=== PATIENT | female | born 1960 | race Caucasian/White ===

== ENCOUNTER 2017-08-11 10:41 | Emergency (ER) | payer MEDICARE, MEDICAID, SELFPAY ==
[2017-08-11 10:42] VITALS: RESP 18; O2SAT 99; BMI 35.6
--- NOTE | 2017-08-11 10:48 | CT_ITS ---
CT head/brain wo con HISTORY: Headache/pain following injury, contusion, abrasion. Prior cranial surgery ITS.REASON: FALL WITH INJURY ORDERING PHYSICIAN: Jurgen Nair MD PATIENT AGE: 57 years COMPARISON: 03/08/2017 TECHNIQUE: Axial images obtained without contrast. Brain and bone windows reviewed. FINDINGS: Has been a prior right temporal, parietal, and frontal craniotomy with extensive encephalomalacia change in the right frontal lobe, posterior temporal region, and right lower lobe similar to the previous exam No intracranial hemorrhage, midline shift or mass effect is evident. No acute calvarial fracture. IMPRESSION: Extensive encephalomalacia change on the right likely from a prior MCA infarction with craniotomy changes. No change with no acute finding
--- NOTE | 2017-08-11 10:51 | CT_ITS ---
CT cervical spine wo con INDICATION: Neck pain following injury/fall ITS.REASON: FALL ORDERING PHYSICIAN: Jurgen Nair MD PATIENT AGE: 57 years COMPARISON: None TECHNIQUE: Axial images are obtained without contrast. Sagittal and coronal reformatted images are reviewed as well. FINDINGS: Normal alignment. Patient head is somewhat tilted to the right. No fracture or dislocation is evident. No prevertebral soft tissue swelling There is a nodule in the left upper lobe centrally measuring up to 3 x 1.5 cm. Neoplasm is considered versus fibrotic change. Consider outpatient chest CT for further evaluation IMPRESSION: 1. Negative cervical spine, no acute fracture. 2. Indeterminate incompletely imaged left upper lobe 3 x 1.5 cm nodule
--- NOTE | 2017-08-11 10:51 | HMH.EDGENADL ---
ED Disposition Clinical Impression: Scalp contusion Qualifiers: Encounter type: initial encounter Qualified Code(s): S00.03XA - Contusion of scalp, initial encounter Cervical strain Qualifiers: Encounter type: initial encounter Qualified Code(s): S16.1XXA - Strain of muscle, fascia and tendon at neck level, initial encounter Fracture of second metacarpal bone of left hand Qualifiers: Encounter type: initial encounter Fracture type: closed Metacarpal location: shaft Fracture alignment: nondisplaced Qualified Code(s): S62.351A - Nondisplaced fracture of shaft of second metacarpal bone, left hand, initial encounter for closed fracture Fall Qualifiers: Encounter type: initial encounter Qualified Code(s): W19.XXXA - Unspecified fall, initial encounter Disposition: Home, Self-Care Condition on Discharge: Good Additional Instructions: Wear splint until seen by Dr. Mena. Additional instructions for HEAD INJURY: See your physician as soon as possible for further evaluation. Return immediately if severe headache, vomiting, problems with vision or speech, numbness or weakness of the extremities, or severe neck pain. Referrals: Taran Mena MD [Staff Physician] - 3 days - Critical Care Critical Care Time: No Attestation: On , the high probability of a clinically significant, sudden or life threatening deterioration of the following system(s) required my full and direct attention, intervention and personal management. The time I documented below is in addition to time spent performing reported procedures but includes the following listed in this critical care notation. Medical Decision Making Vital Signs: 08/11/17 10:42 Temperature Source Oral Respiratory Rate 18 02 Sat by Pulse Oximetry 99 Oxygen Delivery Method Room Air - Radiology Data #1 Image(s): Hand Image Reviewed: Yes I have reviewed radiologist's interpretation Nondisplaced fracture distal second metacarpal. I have reviewed the film and the patient's soft tissue of her thumb overlies this area because of a chronic contracture of her hand. This lucency in this metacarpal looks to me to extend past the margins of the metacarpal on both sides and may be related to overlying soft tissue rather than fracture. on examination, the patient does not have any edema, ecchymosis or tenderness in this area. However, will splint it and send her to orthopedics for follow-up. - CT Data CT Scan: Head, C-Spine Time Received: 12:[address] Reviewed: Yes: I have viewed the radiologist's interpretation Findings Narrative: Head: No acute process. Prior craniotomy. Cervical spine: No acute process. Questionable upper lung nodule. - Josue Inquiry Pt receiving controlled substance: No General Adult HPI - General Chief complaint: Fall Stated complaint: FALL Mode of Arrival: EMS Limitations: No Limitations Description of Symptoms (Recalled from ER Triage Doc. by RN): FELL AND HIT HEAD - History of Present Illness HPI narrative: The patient is brought in by ambulance from [place] complaining of a fall. She says she fell because of her shoes. It sounds like a mechanical fall. She says she hit the right side of her head, pretty hard. She says she does not have a skull on that side due to previous brain aneurysm. She does not complain of neck pain but when I ask her if she hurt her neck she says yes . She says she also hurt her left index finger she says it's broken - Related Data Home Medications Medication Instructions Recorded Confirmed Acetaminophen [Tylenol] 325 mg PO DAILY 08/11/17 08/11/17 Aspirin [Aspirin 81mg chewable 81 mg PO DAILY 08/11/17 08/11/17 tab] Atorvastatin Calcium [Lipitor 10mg 0 mg PO DAILY 08/11/17 08/11/17 Tablet] Buspirone HCl [Buspar 10mg tablet] 0 mg PO DAILY 08/11/17 08/11/17 Losartan Potassium 100 mg PO DAILYDM 08/11/17 08/11/17 Metoprolol Succinate 25 mg PO DAILY 08/11/17 08/11/17 PARoxetine H
--- NOTE | 2017-08-11 11:03 | XR_ITS ---
XR hand LT min 3V HISTORY: Post traumatic pain ITS.REASON: fall ORDERING PHYSICIAN: Jurgen Nair MD PATIENT AGE: 57 years COMPARISON: None FINDINGS: Patient was unable to extend the fourth fifth fingers. Study is somewhat limited technically. There is a nondisplaced fracture at the distal shaft of the second metacarpal. Bone plates are present at the distal radius and normal. There is generalized osteopenia. IMPRESSION: Nondisplaced fracture distal aspect of second metacarpal. Limited exam secondary to patient positioning
[2017-08-11 14:13] VITALS: BP 114/57; PULSE 63; RESP 18; TEMP 36.8
== END 2017-08-11 14:15 | disposition home or self-care (01) ==
PROVIDERS: Emergency Provider Emergency Medicine; Family Provider Emergency Medicine
DX: S00.03XA Contusion of scalp, initial encounter (principal); S16.1XXA Strain of muscle, fascia and tendon at neck level, initial encounter; S62.351A Nondisplaced fracture of shaft of second metacarpal bone, left hand, initial encounter for closed fracture; W01.0XXA Fall on same level from slipping, tripping and stumbling without subsequent striking against object, initial encounter; Y92.199 Unspecified place in other specified residential institution as the place of occurrence of the external cause; Z79.899 Other long term (current) drug therapy; Z79.82 Long term (current) use of aspirin
CPT/HCPCS: 29130; 70450; 72125; 73130; 99281; 99291

== ENCOUNTER → 2017-08-22 10:16 | Outpatient (CLI) | payer MEDICARE, SELFPAY ==
--- NOTE | 2017-08-22 10:19 | XR_ITS ---
XR hand LT min 3V HISTORY: Follow-up fracture ITS.REASON: LT second metacaral fx ORDERING PHYSICIAN: Taran Mena MD PATIENT AGE: 57 years COMPARISON: 2 03 20 FINDINGS: The study is obtained through a cast There is a nondisplaced fracture of the distal shaft of the second metacarpal. This poorly demonstrated due to the overlying cast. There is an old fracture of the distal radius and ulna with a bone plate present at the distal radius and ulna. IMPRESSION: Nondisplaced fracture distal second metacarpal poorly demonstrated due to overlying cast
== END ==
PROVIDERS: PCP Emergency Medicine; Visit Provider Orthopaedic Surgery
DX: S62.301A Unspecified fracture of second metacarpal bone, left hand, initial encounter for closed fracture (principal)
CPT/HCPCS: 73130

== ENCOUNTER 2017-09-12 12:33 | Emergency (ER) | payer MEDICARE, MEDICAID, SELFPAY ==
[2017-09-12 12:33] VITALS: BP 173/110; PULSE 76; RESP 20; TEMP 36.6; O2SAT 97; BMI 33.6
--- NOTE | 2017-09-12 12:47 | HMH.EDGENADL ---
ED Disposition Clinical Impression: Episode of shaking Disposition: Home, Self-Care Condition on Discharge: Good Instructions: DI for Seizure (Not Epilepsy/Seizure Disorder) Additional Instructions: Possible seizure, call Dr. Wagner to arrange further evaluation and care. Additional instructions for SEIZURE OR LOSS OF CONSCIOUSNESS/POSSIBLE SEIZURE: NO DRIVING, BIKE RIDING, SWIMMING, TUB BATHING, LADDERS UNTIL CLEARED BY DOCTOR. RETURN IF SEIZURE RECURS. NO ALCOHOL OR STREET DRUGS. See your physician as soon as possible for follow-up. Return to the emergency department if seizure recurs. Referrals: Tommie Wagner MD [Primary Care Provider] - (call today to arrange further evaluation and care) - Critical Care Critical Care Time: No Attestation: On , the high probability of a clinically significant, sudden or life threatening deterioration of the following system(s) required my full and direct attention, intervention and personal management. The time I documented below is in addition to time spent performing reported procedures but includes the following listed in this critical care notation. Medical Decision Making - Medical Records Medical records reviewed: Yes: I reviewed the patient's medical records. - Josue Inquiry Pt receiving controlled substance: No Vital Signs: 09/12/17 12:33 Temperature 97.9 F Temperature Source Axillary Pulse Rate [Right Brachial] 76 Respiratory Rate 20 Blood Pressure [Right Arm] 173/110 Blood Pressure Mean [Right Arm] 131 Blood Pressure Source [Right Arm] Automatic Cuff Blood Pressure Position [Right Arm] Sitting 02 Sat by Pulse Oximetry 97 Oxygen Delivery Method Room Air - Lab Data Lab Results 09/12/17 13:10: WBC 6.2, RBC 3.83 L, Hgb 9.6 L, Hct 32.3 L, MCV 84.3, MCH 25.1 L, MCHC 29.8 L, RDW 16.7, Plt Count 370, MPV 7.6, Neut % (Auto) 57.1, Lymph % (Auto) 32.3, Jackson % (Auto) 6.8, Eos % (Auto) 2.9, Baso % (Auto) 0.9, Neut # (Auto) 3.5, Lymph # (Auto) 2.0, Jackson # (Auto) 0.4, Eos # (Auto) 0.2, Baso # (Auto) 0.1 09/12/17 13:10: Sodium 139, Potassium 4.2, Chloride 104, Carbon Dioxide 28, Anion Gap 11.2, BUN 12, Creatinine 0.82, Estimated Creat Clear 82, Estimated GFR 72, Est GFR ( Amer) 87, Glucose 127 H, Calcium 8.6, Total Bilirubin 0.2, AST 74 H, ALT 57, Alkaline Phosphatase 130 H, Total Protein 9.3 H, Albumin 3.7, Globulin 5.6 H, Albumin/Globulin Ratio 0.7 L Result diagrams: 09/12/17 13:10 09/12/17 13:10 - CT Data CT Scan: Head Time Received: 14:[address] Reviewed: Yes: I have viewed the radiologist's interpretation Findings Narrative: Overall, no change from prior with extensive encephalomalacia and prior right-sided craniotomy. Medical Decision Narrative: The patient is ambulating around the emergency room, sitting in a chair, eating a meal. She says she feels normal. No change in her vision, speech, no new numbness or weakness. It is possible that she had a focal seizure, given her prior craniotomy. Advise further evaluation and care by Dr. Wagner. General Adult HPI - General Chief complaint: Dizziness Stated complaint: dizzy Mode of Arrival: Ambulatory Limitations: No Limitations Description of Symptoms (Recalled from ER Triage Doc. by RN): Pt reports felt dizzy suddenly and asked for [place] Staff to help her sit down. - History of Present Illness HPI narrative: The patient is brought in by ambulance from [facility]. The patient states that she got dizzy and staff at the facility helped lay her down. She did not fall. She does tell me that she was shaky. Our nursing staff contacted their staff and they report that the patient had an episode lasting 1 minute of shaking only on her left side. They suspected a seizure. Her speech did not seem right. She does not have a previously diagnosed seizure disorder. She says her left arm/hand is crippled from previous condition. Has a history of a brain aneurysm with crani
--- NOTE | 2017-09-12 12:51 | CT_ITS ---
CT head/brain wo con HISTORY: Seizure ITS.REASON: possible seizure ORDERING PHYSICIAN: Jurgen Nair MD PATIENT AGE: 57 years COMPARISON: 08 11 17 TECHNIQUE: Axial images obtained without contrast. Brain and bone windows reviewed. FINDINGS: There is been a prior right temporal, parietal, and frontal craniotomy with extensive encephalomalacia change in the right frontal, posterior temporal, and parietal lobe similar to the previous exam with extensive craniotomy defect on the right. No midline shift, mass effect, intracranial hemorrhage, or hydrocephalus is evident IMPRESSION: Overall no change in extensive right-sided encephalomalacia change with prior right-sided craniotomy as described above
[2017-09-12 13:21] LABS: Basophils # 0.1 K/mm3 (0-0.2); Basophils % 0.9 % (0.1-2.0); Eosinophils # 0.2 K/mm3 (0.0-0.4); Eosinophils % 2.9 % (0.1-12.0); Hematocrit 32.3 % (37.0-47.0); Hemoglobin 9.6 g/dL (12.2-16.2); Lymphocytes % 32.3 K/mm3 (10-50); Mean Corpuscular HGB Conc 29.8 g/dL (31.8-35.4); Mean Corpuscular Hemoglobin 25.1 pg (27.0-31.2); Mean Corpuscular Volume 84.3 fl (81-99); Mean Platelet Volume 7.6 fl (7.4-10.4); Monocytes # 0.4 K/mm3 (0.1-1.0); Monocytes % 6.8 % (1.7-9.3); Neutrophils # 3.5 K/mm3 (1.8-7.8); Neutrophils % 57.1 % (37.0-80.0); Platelet Count 370 K/mm3 (142-424); Red Blood Count 3.83 M/mm3 (4.20-5.40); Red Cell Distribution Width 16.7 % (11.5-17.5); White Blood Count 6.2 K/mm3 (4.8-10.8)
[2017-09-12 13:31] LABS: Alanine Aminotransferase 57 U/L (12-78); Albumin Level 3.7 gm/dL (3.4-5.0); Albumin/Globulin Ratio 0.7 (1.1-1.8); Alkaline Phosphatase 130 U/L (46-116); Anion Gap 11.2 mEq/L (5-15); Bilirubin,Total 0.2 mg/dL (0.2-1.0); Blood Urea Nitrogen 12 mg/dL (7-18); Calcium 8.6 mg/dL (8.5-10.1); Carbon Dioxide 28 mmol/L (21.0-32.0); Chloride 104 mmol/L (98-107); Creatinine Clearance Estimated 82 mL/min (0-300); Creatinine,Serum 0.82 mg/dL (0.55-1.02); Estimated Glomerular Filt Rate 72 ml/min (>60); GFR (African American) 87 ML/MIN (>60); Globulin 5.6 gm/dl (1.3-3.2); Sodium 139 mmol/L (136-145); Total Protein,Serum 9.3 gm/dL (6.4-8.2)
[2017-09-12 13:42] LABS: Aspartate Amino Transferase 74 U/L (15-37); Potassium 4.2 mmoL/L (3.5-5.1)
[2017-09-12 13:51] LABS: Glucose 127 mg/dL (74-106)
[2017-09-12 14:52] VITALS: BP 164/92; PULSE 72; RESP 20; TEMP 36.7; O2SAT 97
== END 2017-09-12 14:53 | disposition home or self-care (01) ==
PROVIDERS: Emergency Provider Emergency Medicine; Family Provider Emergency Medicine; PCP Emergency Medicine
DX: R42 Dizziness and giddiness (principal); R25.1 Tremor, unspecified; F41.9 Anxiety disorder, unspecified; I10 Essential (primary) hypertension; F17.210 Nicotine dependence, cigarettes, uncomplicated
CPT/HCPCS: 70450; 80053; 85025; 99283

== ENCOUNTER → 2017-09-15 07:58 | Outpatient (CLI) | payer MEDICARE, MEDICAID, SELFPAY ==
--- NOTE | 2017-09-15 07:58 | CT_ITS ---
CT chest wo con COMPARISON: AP upright chest 03/07/2017 HISTORY: Follow-up lung nodule seen on recent CT scan cervical spine TECHNIQUE: Multiaxial scans obtained from the thoracic inlet the hemidiaphragms and were performed without IV contrast. Sagittal coronal reformats were evaluated as well. FINDINGS: There is an oval soft tissue mass with smooth borders anterior segment left upper lobe measuring possibly 2.2 cm on the axial image with what appears be fibrotic stranding extending to the pleura anteriorly. It is basically unchanged in size and overall appearance from previous AP chest film in March 2017. The lung ford are otherwise clear bilaterally. Cardiac size is normal. The superior mediastinum is unremarkable. There is mild aortic tortuosity but no cardiomegaly. Is no pleural fluid. IMPRESSION: Benign-appearing noncalcified oval mass anterior segment left upper lobe and a noncalcified granuloma is a possibility, also hamartoma is a consideration. Focal post inflammatory or post traumatic scarring is a consideration as well. It does appear to be basically stable in appearance from the previous chest film in 6 months previously. In view of the size of the mass suggest a follow-up CT scan or possibly 6 months to evaluate for interval stability
--- NOTE | 2017-09-15 08:15 | XR_ITS ---
XR hand LT min 3V COMPARISON: Left hand 08/11/2017 HISTORY: Follow-up fracture TECHNIQUE: AP lateral and oblique views FINDINGS: Again is generalized osteopenia with mild flexion deformities or possibly mild chronic partial subluxations of the MP joints of the third fourth and fifth fingers. The oblique fracture of the distal shaft of the second metacarpal is almost completely healed this time. IMPRESSION: Healing nondisplaced fracture distal shaft second metacarpal
== END ==
PROVIDERS: Family Provider Emergency Medicine; PCP Emergency Medicine; Visit Provider Emergency Medicine
DX: R91.1 Solitary pulmonary nodule (principal); S62.301A Unspecified fracture of second metacarpal bone, left hand, initial encounter for closed fracture
CPT/HCPCS: 71250; 73130

== ENCOUNTER → 2017-11-07 13:53 | Outpatient (CLI) | payer MEDICARE, MEDICAID, SELFPAY ==
--- NOTE | 2017-11-07 14:04 | XR_ITS ---
XR shoulder LT min 2V HISTORY: Follow-up fracture ITS.REASON: LT humeral neck fx ORDERING PHYSICIAN: Taran Mena MD PATIENT AGE: 57 years COMPARISON: 10/26/2017 FINDINGS: Comminuted impacted radial neck fracture once again noted. There is some callus formation developing along the medial aspect of the fracture. There remains mild impaction with foreshortening. There is mild anterior displacement. IMPRESSION: Healing impacted left humeral neck fracture
== END ==
PROVIDERS: PCP Emergency Medicine; Visit Provider Orthopaedic Surgery
DX: S42.309A Unspecified fracture of shaft of humerus, unspecified arm, initial encounter for closed fracture (principal)
CPT/HCPCS: 73030

== ENCOUNTER → 2017-11-21 09:10 | Outpatient (CLI) | payer MEDICARE, MEDICAID, SELFPAY ==
--- NOTE | 2017-11-21 09:14 | XR_ITS ---
XR shoulder LT min 2V HISTORY: Follow-up fracture ITS.REASON: LT humeral neck fx ORDERING PHYSICIAN: Taran Mena MD PATIENT AGE: 57 years Comparison: 518 FINDINGS: 2 views of left shoulder show a comminuted impacted humeral neck fracture with longitudinal components into the greater tuberosity region. There may be some early callus formation along the medial aspect of the humeral neck. IMPRESSION: Comminuted impacted left humeral neck fracture with suggestion of some early callus formation. No significant displacement
== END ==
PROVIDERS: PCP Emergency Medicine; Visit Provider Orthopaedic Surgery
DX: S42.309A Unspecified fracture of shaft of humerus, unspecified arm, initial encounter for closed fracture (principal)
CPT/HCPCS: 73030

== ENCOUNTER → 2018-11-08 12:40 | Outpatient (CLI) | payer MEDICARE, MEDICAID, SELFPAY ==
--- NOTE | 2018-11-08 12:45 | XR_ITS ---
XR shoulder RT min 2V HISTORY: Follow-up fracture ITS.REASON: right shoulder fx; regular views ORDERING PHYSICIAN: Jules Nye MD PATIENT AGE: 58 years Comparison: 10/10/2018 FINDINGS: Healing comminuted fracture is present involving the neck and head of the right humerus. There is impaction of the fracture fragments. Hypertrophic changes involve the distal clavicle superiorly. There are old right-sided rib fractures. IMPRESSION: No change comminuted healing impacted fracture of the proximal humerus
== END ==
PROVIDERS: Visit Provider Orthopaedic Surgery
DX: S42.291A Other displaced fracture of upper end of right humerus, initial encounter for closed fracture (principal)
CPT/HCPCS: 73030

== ENCOUNTER → 2019-03-29 13:40 | Outpatient (CLI) | payer MEDICARE, MEDICAID, SELFPAY ==
--- NOTE | 2019-03-29 14:04 | XR_ITS ---
PROCEDURE: XR CHEST 2V CLINICAL HISTORY: screening Positive TB skin test COMPARISON: CXR2V XR chest 2V from 04/21/[address] chest wo con from 05/18/2018 CXR1VP XR chest portable from 08/07/2018 XR CHEST PORTABLE from 02/23/2019 FINDINGS: The cardiomediastinal silhouette and pulmonary vascularity are within normal limits. Left upper lobe nodule once again noted not significantly changed. No cavitating lesions evident. No lobar consolidation or collapse. There is some nodularity in the right lung base medially possibly due to overlying vessels. Chronic wedge compression changes are present in the thoracic spine. There is an old ununited left proximal humeral fracture. There are old bilateral rib fractures there is no fracture of the right humeral neck IMPRESSION: No change with no acute finding. Please see above for details Dictated by: Moe Ivy MD 03/29/2019 16:11 Electronically signed by Moe Ivy MD in [place] 03/29/2019 16:11
== END ==
PROVIDERS: PCP Emergency Medicine; Visit Provider Emergency Medicine
DX: Z11.1 Encounter for screening for respiratory tuberculosis (principal); R76.11 Nonspecific reaction to tuberculin skin test without active tuberculosis
CPT/HCPCS: 71046

== ENCOUNTER → 2019-06-18 08:52 | Outpatient (CLI) | payer MEDICARE, MEDICAID, SELFPAY ==
--- NOTE | 2019-06-18 09:00 | XR_ITS ---
PROCEDURE: XR SHOULDER LT MIN 2V CLINICAL INDICATION: proximal humerus fracture fu Follow-up fracture COMPARISON: SHOULDCMLT XR shoulder LT min 2V from 04/21/2018 SHOULDCMLT XR shoulder LT min 2V from 05/18/2018 SHOULDCMRT XR shoulder RT min 2V from 10/10/2018 XR HUMERUS LT from 05/20/2019 XR SHOULDER LT MIN 2V from 05/20/2019 FINDINGS: There is an old ununited fracture of the proximal humerus. Mildly displaced fracture involves the distal shaft of the humerus with mild medial displacement and medial angulation and mild posterior displacement and posterior angulation of the distal fracture fragment. There is developing callus formation. There are multiple old left-sided rib fractures. IMPRESSION: Old ununited proximal humeral fracture with healing distal humeral fracture Dictated by: Leigha Haq 06/18/2019 09:39 Electronically signed by Moe Ivy MD in [place] 06/18/2019 14:29
== END ==
PROVIDERS: PCP Emergency Medicine; Visit Provider Orthopaedic Surgery
DX: S42.415A Nondisplaced simple supracondylar fracture without intercondylar fracture of left humerus, initial encounter for closed fracture (principal)
CPT/HCPCS: 73030

== ENCOUNTER 2019-10-24 13:40 | Emergency (ER) | payer MEDICARE, MEDICAID, SELFPAY ==
[2019-10-24 13:37] VITALS: BP 112/68; PULSE 85; RESP 18; TEMP 37.3; O2SAT 95; BMI 35.2
--- NOTE | 2019-10-24 13:41 | PC.NURSE ---
Pt requested sock and a blanket. They were provided to her at this time.
--- NOTE | 2019-10-24 13:44 | HMH.EDGENADL ---
ED Disposition Clinical Impression: Multiple contusions Fall Qualifiers: Encounter type: initial encounter Qualified Code(s): W19.XXXA - Unspecified fall, initial encounter Disposition: Xfer SNF Condition on Discharge: Good Instructions: How to Prevent Falls Additional Instructions: Pulmonary nodules (spots on the lung) were noted during your evaluation today on CT scan. These have been present previously and have enlarged. It is recommended that you follow-up with a primary care provider for further evaluation. Follow-up with primary care provider. Referrals: Provider,Referral, [Primary Care Provider] - - Critical Care Critical Care Time: No Attestation: On 10/24/19, the high probability of a clinically significant, sudden or life threatening deterioration of the following system(s) required my full and direct attention, intervention and personal management. The time I documented below is in addition to time spent performing reported procedures but includes the following listed in this critical care notation. Medical Decision Making - Medical Records Medical records reviewed: Yes: I reviewed the patient's medical records. - Josue Inquiry Pt receiving controlled substance: No Vital Signs: 10/24/19 13:37 Temperature 99.2 F Temperature Source Oral Pulse Rate [Radial] 85 Respiratory Rate 18 Blood Pressure [Right Arm] 112/68 Blood Pressure Mean [Right Arm] 82 Blood Pressure Source [Right Arm] Automatic Cuff Blood Pressure Position [Right Arm] Sitting 02 Sat by Pulse Oximetry 95 Oxygen Delivery Method Room Air Orders (Tests/Meds): ORDERS Category Date Time Status XR chest AP Stat Exams 10/24/19 13:50 Taken XR foot LT min 3V Stat Exams 10/24/19 13:54 Taken XR pelvis 1-2V Stat Exams 10/24/19 13:50 Taken - Radiology Data #1 Image(s): Chest, Hand, Pelvis, Foot/Toes Image Reviewed: Yes I reviewed the patient's radiology image Hand: Old deformities, no acute fracture or dislocation Foot: Old fracture of fifth metatarsal, no acute fracture or dislocation Chest: Old left humeral head fracture, no acute disease Pelvis: no fracture or dislocation seen. - CT Data CT Scan: Head, C-Spine, T-Spine, L-Spine Time Received: 15:[address] Reviewed: Yes: I have viewed the radiologist's interpretation Findings Narrative: PROCEDURE: CT HEAD/BRAIN WO CON CLINICAL INDICATION: fall Posttraumatic pain, injury with pain, abrasion/hematoma following injury COMPARISON: CT HEAD/BRAIN WO CON from 09/01/2019 TECHNIQUE: Axial images obtained. All CT scans at the facility use one or more dose reduction, viz: automated exposure control, ma/kV adjustment per patient size (including targeted exams where dose is matched to indication, i.e. head), or iterative reconstruction technique. FINDINGS: No midline shift or mass effect. No acute intracranial hemorrhage. Extensive craniectomy has been performed on the right with diffuse encephalomalacia changes in the right parietal, frontal, and temporal lobe. This did have a similar appearance on 09/01/2019 IMPRESSION: No change with no acute finding Dictated by: Moe Ivy MD 10/24/2019 14:57 Electronically signed by Moe Ivy MD in [place] 10/24/2019 14:57 PROCEDURE: CT CERVICAL SPINE WO CON CLINICAL INDICATION: FALL Neck pain following injury, fall with injury and pain COMPARISON: CT CERVICAL SPINE WO CON from 05/20/2019 CT CHEST WO CON from 09/01/2019 CT CERVICAL SPINE WO CON from 09/01/2019 CT THORACIC SPINE WO CON from 10/24/2019 TECHNIQUE: Axial images obtained with sagittal and coronal reformats. All CT scans at the facility use one or more dose reduction, viz: automated exposure control, ma/kV adjustment per patient size (including targeted exams where dose is matched to indication, i.e. head), or iterative reconstruction technique. Axial spiral CT scanning performed of the cervical
--- NOTE | 2019-10-24 13:50 | XR_ITS ---
PROCEDURE: XR CHEST AP CLINICAL HISTORY: FALL Posttraumatic pain COMPARISON: XR CHEST 2V from 03/29/2019 XR RIBS LT MIN 3V W CXR1V from 05/10/2019 XR CHEST AP from 05/20/2019 CT CHEST WO CON from 09/01/2019 FINDINGS: The cardiomediastinal silhouette and pulmonary vascularity are within normal limits. There is a stable nodular opacity in the left upper lobe medially. No lobar consolidation There is an old ununited left humeral neck fracture with medial displacement of the distal fracture fragment. There are old bilateral rib fractures and there is an old right humeral neck IMPRESSION: No acute findings. Dictated by: Moe Ivy MD 10/24/2019 15:28 Electronically signed by Moe Ivy MD in [place] 10/24/2019 15:28
--- NOTE | 2019-10-24 13:50 | XR_ITS ---
PROCEDURE: XR PELVIS 1-2V CLINICAL INDICATION: FALL Posttraumatic pain, trauma protocol COMPARISON: XR PELVIS 1-2V from 05/20/2019 TECHNIQUE: XR Pelvis AP View FINDINGS: No fracture or dislocation is evident. No significant degenerative change. No lytic or blastic change. IMPRESSION: No acute findings. Dictated by: Moe Ivy MD 10/24/2019 15:29 Electronically signed by Moe Ivy MD in [place] 10/24/2019 15:29
--- NOTE | 2019-10-24 13:50 | CT_ITS ---
PROCEDURE: CT CERVICAL SPINE WO CON CLINICAL INDICATION: FALL Neck pain following injury, fall with injury and pain COMPARISON: CT CERVICAL SPINE WO CON from 05/20/2019 CT CHEST WO CON from 09/01/2019 CT CERVICAL SPINE WO CON from 09/01/2019 CT THORACIC SPINE WO CON from 10/24/2019 TECHNIQUE: Axial images obtained with sagittal and coronal reformats. All CT scans at the facility use one or more dose reduction, viz: automated exposure control, ma/kV adjustment per patient size (including targeted exams where dose is matched to indication, i.e. head), or iterative reconstruction technique. Axial spiral CT scanning performed of the cervical spine beginning at the base of the skull and continuing to the upper T-spine. 3-D multiplanar reconstruction with 3-D manipulation of volumetric data set in image rendering was completed by the radiologist and/or technologist with the supervision of the radiologist on independent workstation. FINDINGS: Study is somewhat limited technically due to patient's body habitus. There is diffuse osteopenia. Patient's head is tilted toward the right. No obvious fracture or dislocation. Left apical nodular density with underlying scarring or atelectatic changes noted IMPRESSION: 1. No acute fracture. 2. Diffuse osteopenia 3. Left upper lobe nodule Dictated by: Moe Ivy MD 10/24/2019 15:04 Electronically signed by Moe Ivy MD in [place] 10/24/2019 15:04
--- NOTE | 2019-10-24 13:54 | XR_ITS ---
PROCEDURE: XR FOOT LT MIN 3V CLINICAL INDICATION: fall Posttraumatic pain, fall with injury and pain with limited range of motion COMPARISON: [id number] XR foot LT min 3V from 10/26/2017 FINDINGS: There is an old fracture involving the distal aspect of the 5th metatarsal. There is mild subluxation laterally involving the distal phalanx of the toe. There is a faint lucency along the proximal and lateral aspect of the proximal phalanx of the 5th toe which could represent a nondisplaced fracture. Patient's foot is inverted. No other significant anomalies are evident. Other findings:None. IMPRESSION: There is an old 5th metatarsal fracture with suspected nondisplaced fracture involving the proximal and lateral aspect of the proximal phalanx of the 5th toe. Dictated by: Moe Ivy MD 10/24/2019 15:27 Electronically signed by Moe Ivy MD in [place] 10/24/2019 15:27
--- NOTE | 2019-10-24 13:54 | XR_ITS ---
PROCEDURE: XR HAND LT MIN 3V CLINICAL INDICATION: fall Posttraumatic pain COMPARISON: [id number] XR hand LT min 3V from 09/15/2017 [id number] XR hand LT 2V from 10/26/2017 [id number] XR hand LT min 3V from 05/18/2018 XR HAND LT MIN 3V from 05/20/2019 FINDINGS: Limited positioning as the patient's hand is fixed partial flexion with extension at the PIP is a and interphalangeal joint of the thumb. No definite acute fracture or dislocation. There is diffuse osteopenia. There is a bone plate at distal ulna and radius. IMPRESSION: Chronic changes, no acute fracture. Dictated by: Moe Iyv MD 10/24/2019 15:21 Electronically signed by Moe Ivy MD in [place] 10/24/2019 15:21
--- NOTE | 2019-10-24 13:54 | CT_ITS ---
PROCEDURE: CT LUMBAR SPINE WO CON CLINICAL HISTORY: fall Posttraumatic pain, fall with injury and pain COMPARISON: [id number] CT lumbar spine wo con from 05/18/2018 TECHNIQUE: Axial images obtained with sagittal and coronal reformats. All CT scans at the facility use one or more dose reduction, viz: automated exposure control, ma/kV adjustment per patient size (including targeted exams where dose is matched to indication, i.e. head), or iterative reconstruction technique. FINDINGS: There is diffuse osteopenia. There is normal alignment. No acute fracture or dislocation is evident. There is minimal superior endplate depression at L3 which is unchanged. There is an old left 12th rib fracture medially mild facet hypertrophic changes are present at L4-L5 and there is mild bulging disc at L5-S1. There is cortical scarring of the right kidney with a nonobstructing 7 mm stone along the lower pole of the right kidney IMPRESSION: 1. No acute fracture. 2. Diffuse osteopenia with old left 12th rib fracture an old minimal depression of the superior endplate of L3 on the right 3. Right nephrolithiasis Dictated by: Moe Ivy MD 10/24/2019 15:20 Electronically signed by Moe Ivy MD in [place] 10/24/2019 15:20
--- NOTE | 2019-10-24 13:54 | CT_ITS ---
PROCEDURE: CT THORACIC SPINE WO CON CLINICAL HISTORY: fall Fall with injury and pain, posttraumatic pain, contusion/abrasion COMPARISON: [facility] CT thoracic spine wo con from 05/18/2018 CT CHEST WO CON from 09/01/2019 TECHNIQUE: Axial images obtained with sagittal and coronal reformats. All CT scans at the facility use one or more dose reduction, viz: automated exposure control, ma/kV adjustment per patient size (including targeted exams where dose is matched to indication, i.e. head), or iterative reconstruction technique. FINDINGS: There is diffuse osteopenia. Mild wedge compression changes involve T4-T5 T6 and T8 which appears similar when compared to 05/18/2018. No acute fracture or dislocation is evident. There is an old right 5th rib fracture posteriorly. Incidental note made 13 mm nodule in the right lower lobe and a 16 mm nodule the left upper lobe. Previously the left upper lobe nodule measuring 13 mm in the right lower lobe nodule measured 12 mm IMPRESSION: 1. No acute fracture. 2. Diffuse osteopenia with multiple wedge compression fractures unchanged. 3. Nodules in the right lower lobe and left upper lobe suspicious for neoplasm Dictated by: Moe Ivy MD 10/24/2019 15:11 Electronically signed by Moe Ivy MD in [place] 10/24/2019 15:11
--- NOTE | 2019-10-24 14:10 | PC.NURSE ---
Per pt request, BP cuff taken off of her before her arm popped off V/s delayed.
--- NOTE | 2019-10-24 14:13 | PC.NURSE ---
Pt to rad.
[2019-10-24 15:45] VITALS: BP 112/68; PULSE 85; RESP 18; TEMP 37.3; O2SAT 95
== END 2019-10-24 15:48 ==
PROVIDERS: Emergency Provider Emergency Medicine
DX: S20.219A Contusion of unspecified front wall of thorax, initial encounter (principal); S30.0XXA Contusion of lower back and pelvis, initial encounter; S20.222A Contusion of left back wall of thorax, initial encounter; S20.221A Contusion of right back wall of thorax, initial encounter; S60.222A Contusion of left hand, initial encounter; W01.0XXA Fall on same level from slipping, tripping and stumbling without subsequent striking against object, initial encounter; Y92.019 Unspecified place in single-family (private) house as the place of occurrence of the external cause; I10 Essential (primary) hypertension; F17.210 Nicotine dependence, cigarettes, uncomplicated; F41.9 Anxiety disorder, unspecified; Z79.899 Other long term (current) drug therapy
CPT/HCPCS: 70450; 71045; 72125; 72128; 72131; 72170; 73130; 73630; 99283

== ENCOUNTER 2019-11-11 09:00 | Emergency (ER) | payer MEDICARE, MEDICAID, SELFPAY ==
[2019-11-11 08:37] VITALS: BP 143/90; PULSE 78; RESP 18; TEMP 36.9; O2SAT 100; BMI 48.8
--- NOTE | 2019-11-11 08:45 | CT_ITS ---
PROCEDURE: CT HEAD/BRAIN WO CON CLINICAL INDICATION: seizure Seizures, history of seizures and stroke COMPARISON: CT HEAD/BRAIN WO CON from 10/24/2019 TECHNIQUE: Axial images obtained. All CT scans at the facility use one or more dose reduction, viz: automated exposure control, ma/kV adjustment per patient size (including targeted exams where dose is matched to indication, i.e. head), or iterative reconstruction technique. 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 Old lacunar infarction also noted of the right basal ganglia. Extensive craniectomy defect in the right frontal parietal and temporal region. No midline shift or mass effect. No acute intracranial hemorrhage. No mastoid effusion or sinus air-fluid level IMPRESSION: No acute intracranial findings. Prior right-sided craniectomy with extensive encephalomalacia Dictated by: Moe Ivy MD 11/11/2019 10:34 Electronically signed by Moe Ivy MD in [place] 11/11/2019 10:34
--- NOTE | 2019-11-11 08:51 | PC.NURSE ---
SEIZURE PADS IN PLACE
--- NOTE | 2019-11-11 10:19 | HMH.EDSEIZ ---
ED Disposition Clinical Impression: Epileptic seizure Disposition: Home, Self-Care Condition on Discharge: Good Instructions: DI for Seizure Disorder -- Adult, DI for Seizure (Not Epilepsy/Seizure Disorder), DI for Seizure Disorder -- Child - Critical Care Critical Care Time: No Attestation: On 11/11/19, the high probability of a clinically significant, sudden or life threatening deterioration of the following system(s) required my full and direct attention, intervention and personal management. The time I documented below is in addition to time spent performing reported procedures but includes the following listed in this critical care notation. Medical Decision Making - Medical Records Medical records reviewed: Yes: I reviewed the patient's medical records. - Josue Inquiry Pt receiving controlled substance: No Vital Signs: 11/11/19 08:37 Temperature 98.4 F Temperature Source Oral Pulse Rate [Radial] 78 Respiratory Rate 18 Blood Pressure [Right Arm] 143/90 H Blood Pressure Mean [Right Arm] 107 Blood Pressure Source [Right Arm] Automatic Cuff Blood Pressure Position [Right Arm] Sitting 02 Sat by Pulse Oximetry 100 Oxygen Delivery Method Room Air - Lab Data Lab results reviewed: Yes: I reviewed the patient's lab results. Orders (Tests/Meds): ORDERS Category Date Time Status CT head/brain wo con Stat Cat Scan 11/11/19 08:45 Taken - CT Data CT Scan: Head Time Received: 11:00 Preliminary Findings: Normal/NAD Seizures HPI - General Chief Complaint: Seizure Stated Complaint: Seizure Time Seen by Provider: 11/11/19 10:20 Mode of Arrival: EMS Limitations: No Limitations Description of Symptoms (Recalled from ER Triage Doc. by RN): Seizure - History of Present Illness MD complaint: seizure Onset (ago): minute(s) Description of Episode: other (Unknown this was per patient she said she did start shaking that was a seizure) Duration of episode: 2 -: second(s) Witnessed: no Trauma: No Seizure History: known seizure disorder Place: home Possible Precipitating Event: none Associated symptoms: denies other symptoms Treatments prior to arrival: none - Related Data Home Medications Medication Instructions Recorded Confirmed Acetaminophen [Tylenol] 325 mg PO Q6H PRN 08/11/17 06/18/19 Aspirin [Aspirin 81mg chewable 81 mg PO DAILY 08/11/17 06/18/19 tab] Losartan Potassium 100 mg PO DAILYDM 08/11/17 06/18/19 Metoprolol Succinate 25 mg PO DAILY 08/11/17 06/18/19 PARoxetine HCL [Paroxetine HCl] 40 mg PO DAILY 08/11/17 06/18/19 Quetiapine Fumarate [Seroquel] 50 mg PO DAILY 08/11/17 06/18/19 Quetiapine Fumarate [Seroquel] 100 mg PO DAILY 08/11/17 06/18/19 atorvastatin 10 mg tablet 10 mg PO DAILY tab 08/17/17 06/18/19 Ibuprofen [Ibuprofen 400mg 400 mg PO Q6HP PRN 05/22/18 06/18/19 Tablet] Quetiapine Fumarate [Seroquel 25mg 50 mg PO HS 05/22/18 06/18/19 tablet] Previous Rx's Medication Instructions Recorded Hydrocod/Acet 5/325 mg [[place] 1 tab PO Q6HP PRN #12 tab 10/10/18 5/325mg tablet] Clotrimazole/Betamethasone Dip 1 applicatio TP BID #45 g 02/23/19 [Lotrisone Cream] Clotrimazole/Betamethasone Dip 1 applic TP BID #30 g 05/10/19 [Lotrisone cream 15gm tube] Acetaminophen with Codeine 1 tab PO Q6H PRN #30 tab 05/20/19 [Tylenol with Codeine #3 tablet] lorazepam 0.5 mg tablet 0.5 mg PO BID PRN #60 tab 08/02/19 Allergies Allergy/AdvReac Type Severity Reaction Status Date / Time No Known Allergies Allergy Verified 09/01/19 10:52 [facility] History - Hepatitis A Screen Drug use history?: No High risk sexual behaviors?: No History of sexually transmitted infection?: No Currently employed?: No Childcare worker?: No Do you have indoor plumbing?: Yes Do you have electricity?: Yes Attestation statement:: This patient has been screened for Hepatitis A risk factors. I have reviewed the patient's past medical history: Yes Medical History: Iza
--- NOTE | 2019-11-11 10:35 | PC.NURSE ---
NOTIFIED JACQUES THAT PT WAS READY TO BE PICKED UP.
--- NOTE | 2019-11-11 10:37 | PC.NURSE ---
[facility] called for pt transport.
--- NOTE | 2019-11-11 10:51 | PC.NURSE ---
PT SITTING IN ROOM IN W/C EATING A BREAKFAST TRAY
[2019-11-11 11:12] VITALS: BP 143/90; PULSE 78; RESP 18; TEMP 36.9; O2SAT 100
== END 2019-11-11 11:12 ==
PROVIDERS: Emergency Provider Family Medicine; PCP Emergency Medicine
DX: G40.909 Epilepsy, unspecified, not intractable, without status epilepticus (principal); I10 Essential (primary) hypertension; F41.9 Anxiety disorder, unspecified; Z79.899 Other long term (current) drug therapy; F17.210 Nicotine dependence, cigarettes, uncomplicated
CPT/HCPCS: 70450; 99283

== ENCOUNTER → 2019-11-26 11:29 | Outpatient (CLI) | payer MEDICARE, MEDICAID, SELFPAY ==
[2019-11-26 11:40] LABS: Microscopic, Urine URINE MICROSCOPIC (MICROSCOPIC)
[2019-11-26 11:51] LABS: Appearance,Urine CLEAR (Clear); Bilirubin,Urine Negative (Negative); Blood, Urine Negative (Negative); Color,Urine YELLOW (Yellow); Glucose,Urine (UA) Negative (Negative); Ketones,Urine Negative (Negative); Leukocyte Esterase,Urine Negative (Negative); Nitrate,Urine Negative (Negative); Protein,Urine Negative (Negative); Urobilinogen,Urine 0.2 EU/dl (0.2)
[2019-11-26 11:59] LABS: Bacteria,Urine 2+ /lpf
== END ==
PROVIDERS: Visit Provider Emergency Medicine
DX: R39.15 Urgency of urination (principal)
CPT/HCPCS: 81001; 87086; 87088; 87186

== ENCOUNTER → 2020-03-19 07:45 | Outpatient (CLI) | payer MEDICARE, MEDICAID, SELFPAY ==
--- NOTE | 2020-03-19 07:46 | CT_ITS ---
PROCEDURE: CT HEAD/BRAIN WO CON CLINICAL INDICATION: recurrent falls Recurrence falls, history of brain aneurysm with surgery COMPARISON: CT CT HEAD/BRAIN WO CON from 11/11/2019 TECHNIQUE: Axial images obtained. All CT scans at the facility use one or more dose reduction, viz: automated exposure control, ma/kV adjustment per patient size (including targeted exams where dose is matched to indication, i.e. head), or iterative reconstruction technique. FINDINGS: Post prior right frontal and parietal and temporal craniectomy with diffuse encephalomalacia changes of the right frontal, parietal, and temporal lobe similar to the previous exam. There is generalized atrophy. No midline shift mass effect intracranial hemorrhage or hydrocephalus is evident. IMPRESSION: No interval change with no acute finding. Prior right-sided craniectomy with diffuse encephalomalacia change on the right. Dictated by: Moe Ivy MD 03/19/2020 08:38 Moe Ivy MD in [place] 03/19/2020 08:38
== END ==
PROVIDERS: PCP Emergency Medicine; Visit Provider Emergency Medicine
DX: W19.XXXA Unspecified fall, initial encounter (principal); G40.802 Other epilepsy, not intractable, without status epilepticus; R25.1 Tremor, unspecified; R40.4 Transient alteration of awareness
CPT/HCPCS: 70450

== ENCOUNTER 2020-05-22 16:15 | Emergency (ER) | payer MEDICARE, MEDICAID, SELFPAY ==
[2020-05-22 16:15] VITALS: BP 133/88; PULSE 68; RESP 16; TEMP 37; O2SAT 96; BMI 34.9
--- NOTE | 2020-05-22 16:23 | XR_ITS ---
PROCEDURE: XR PELVIS MIN 3V CLINICAL INDICATION: fell out of bed Pain COMPARISON: CR XR PELVIS 1-2V from 10/24/2019 TECHNIQUE: XR Pelvis AP View FINDINGS: No fracture or dislocation is evident. No significant degenerative change. Well-circumscribed calcific density is present in the right upper quadrant measuring 2.5 cm and may be due to a gallstone. Curvilinear stone is present along the lower pole of the right kidney at 9 mm. IMPRESSION: No acute fracture. Cholelithiasis and right nephrolithiasis Dictated by: Moe Ivy MD 05/22/2020 18:01 Moe Ivy MD in [place] 05/22/2020 18:01
--- NOTE | 2020-05-22 16:23 | XR_ITS ---
PROCEDURE: XR WRIST RT MIN 3V CLINICAL INDICATION: fell out of bed Posttraumatic pain COMPARISON: CR XR WRIST LT MIN 3V from 05/20/2019 FINDINGS: There is an old distal radial and ulnar fracture. There are mild osteoarthritic changes the radiocarpal joint and the 1st metacarpal-carpal joint. No obvious acute fracture or dislocation. 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 Dictated by: Moe Ivy MD 05/22/2020 17:59 Moe Ivy MD in [facility] 05/22/2020 17:59
--- NOTE | 2020-05-22 16:23 | CT_ITS ---
PROCEDURE: CT HEAD/BRAIN WO CON CLINICAL INDICATION: fell out of bed COMPARISON: CT CT HEAD/BRAIN WO CON from 05/20/[address] HEAD/BRAIN WO CON from 03/19/2020 TECHNIQUE: Axial images obtained. All CT scans at the facility use one or more dose reduction, viz: automated exposure control, ma/kV adjustment per patient size (including targeted exams where dose is matched to indication, i.e. head), or iterative reconstruction technique. FINDINGS: There has been and extensive right sided craniectomy in the right frontal parietal and temporal lobe with diffuse encephalomalacia change of the right frontal, parietal, and temporal lobe. No midline shift or mass effect. No acute intracranial hemorrhage. There is mild prominence of the subdural space in the left frontal regions which may be due to small subdural hygroma not significantly changed. Low-density changes are present in the periventricular region on the left consistent with ischemic gliotic change from microvascular disease. IMPRESSION: 1. No acute intracranial findings. 2. Chronic postsurgical changes and encephalomalacia on the right 3. 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
--- NOTE | 2020-05-22 17:05 | PC.NURSE ---
Pt left for rad
[2020-05-22 17:33] VITALS: BP 157/98; PULSE 59; RESP 16; O2SAT 95
--- NOTE | 2020-05-22 17:33 | PC.NURSE ---
pt returned from CT
--- NOTE | 2020-05-22 17:46 | HMH.EDGENADL ---
ED Disposition Clinical Impression: Minor traumatic injury of head with normal mental status Disposition: Xfer SNF Condition on Discharge: Good Additional Instructions: Return to the ED for any new or worsening symptoms. Referrals: Tommie Wagner MD [Primary Care Provider] - - Critical Care Critical Care Time: No Attestation: On 05/22/20, the high probability of a clinically significant, sudden or life threatening deterioration of the following system(s) required my full and direct attention, intervention and personal management. The time I documented below is in addition to time spent performing reported procedures but includes the following listed in this critical care notation. Medical Decision Making - Medical Records Medical records reviewed: Yes: I reviewed the patient's medical records. MR Comment: Hx of intracranial pathology and multiple falls without injury - Josue Inquiry Pt receiving controlled substance: No Vital Signs: 05/22/20 16:15 05/22/20 17:33 Temperature 98.6 F Temperature Source Oral Pulse Rate [Right] 68 59 L Respiratory Rate 16 16 Blood Pressure [Right Arm] 133/88 157/98 H Blood Pressure Mean [Right Arm] 103 117 Blood Pressure Source [Right Arm] Automatic Cuff Blood Pressure Position [Right Arm] Sitting Sitting 02 Sat by Pulse Oximetry 96 95 Oxygen Delivery Method Room Air Room Air - CT Data CT Scan: Head, C-Spine Time Received: 17:40 Preliminary Findings: Normal/NAD Medical Decision Narrative: 60-year-old female who presents with a history of intracranial injury and partial craniectomy and is complaining of no pain other than a right wrist tenderness. X-rays were ordered. Patient's x-ray demonstrates no acute fracture of the forearm or wrist. Pelvis x-ray is negative for abnormalities. CT of the head and C-spine demonstrate no acute intracranial pathology and no acute fractures. [facility]. General Adult HPI - General Chief complaint: PAIN Stated complaint: fall Time Seen by Provider: 05/22/20 16:30 Mode of Arrival: EMS Source of Information: Patient, EMS Limitations: No Limitations Description of Symptoms (Recalled from ER Triage Doc. by RN): pt rolled out of the bed and hit her head and is c/o right wrist/hand pain - History of Present Illness HPI narrative: Pt rolled out of bed at [facility] and was found on the ground. She has pain in her left distal forearm that is mild and 2/10 with no associated numbness or weakness. She has a caron PARTIDA complaint: fall Onset (ago): minute(s) - Related Data Home Medications Medication Instructions Recorded Confirmed Acetaminophen [Tylenol] 325 mg PO Q6H PRN 08/11/17 05/18/20 Aspirin [Aspirin 81mg chewable 81 mg PO DAILY 08/11/17 05/18/20 tab] Losartan Potassium 100 mg PO DAILYDM 08/11/17 05/18/20 Metoprolol Succinate 25 mg PO DAILY 08/11/17 05/18/20 PARoxetine HCL [Paroxetine HCl] 40 mg PO DAILY 08/11/17 05/18/20 Quetiapine Fumarate [Seroquel] 50 mg PO DAILY 08/11/17 05/18/20 Quetiapine Fumarate [Seroquel] 100 mg PO DAILY 08/11/17 05/18/20 atorvastatin 10 mg tablet 10 mg PO DAILY tab 08/17/17 05/18/20 Ibuprofen [Ibuprofen 400mg 400 mg PO Q6HP PRN 05/22/18 05/18/20 Tablet] Quetiapine Fumarate [Seroquel 25mg 50 mg PO HS 05/22/18 05/18/20 tablet] Previous Rx's Medication Instructions Recorded Hydrocod/Acet 5/325 mg [[place] 1 tab PO Q6HP PRN #12 tab 10/10/18 5/325mg tablet] Clotrimazole/Betamethasone Dip 1 applicatio TP BID #45 g 02/23/19 [Lotrisone Cream] Clotrimazole/Betamethasone Dip 1 applic TP BID #30 g 05/10/19 [Lotrisone cream 15gm tube] lorazepam 0.5 mg tablet 0.25 mg PO BID #60 tab 12/23/19 acetaminophen 300 mg-codeine 30 mg 1 tab PO TID #90 tab 05/11/20 tablet Allergies Allergy/AdvReac Type Severity Reaction Status Date / Time No Known Allergies Allergy Verified 05/18/20 16:05 [facility]
--- NOTE | 2020-05-22 18:58 | PC.NURSE ---
[place] called for transport
[2020-05-22 19:04] VITALS: BP 153/101; PULSE 85; RESP 15; TEMP 36.7; O2SAT 98
== END 2020-05-22 19:14 ==
PROVIDERS: Emergency Provider Student in an Organized Health Care Education/Training Program; PCP Emergency Medicine
DX: S00.83XA Contusion of other part of head, initial encounter (principal); W06.XXXA Fall from bed, initial encounter; Y92.129 Unspecified place in nursing home as the place of occurrence of the external cause; F41.9 Anxiety disorder, unspecified; Z86.73 Personal history of transient ischemic attack (TIA), and cerebral infarction without residual deficits; Z79.899 Other long term (current) drug therapy
CPT/HCPCS: 70450; 72190; 73110; 99283

== ENCOUNTER 2020-05-31 19:59 | Inpatient (IN) | payer MEDICARE, MEDICAID, SELFPAY ==
[2020-05-31] VITALS (7 sets, daily range): BP systolic 82–128; BP diastolic 58–80; PULSE 80–105; RESP 16–18; TEMP 37; O2SAT 92–95; BMI 38.3
--- NOTE | 2020-05-31 20:22 | CT_ITS ---
PROCEDURE: CT HEAD/BRAIN WO CON CLINICAL INDICATION: right ABD pain Altered mental status, altered level of consciousness, confusion, disorientation, history of stroke and brain surgery COMPARISON: CT CT HEAD/BRAIN WO CON from 05/22/2020 TECHNIQUE: Axial images obtained. All CT scans at the facility use one or more dose reduction, viz: automated exposure control, ma/kV adjustment per patient size (including targeted exams where dose is matched to indication, i.e. head), or iterative reconstruction technique. FINDINGS: Status post right-sided craniectomy with diffuse encephalomalacia change in the right temporal, frontal, parietal and occipital lobe similar to the previous exam. No midline shift or mass effect no evidence of intracranial hemorrhage. There is atrophy with periventricular ischemic gliotic change.. No mastoid effusion or sinus air-fluid level. IMPRESSION: No change with no acute finding. Right-sided craniectomy with extensive encephalomalacia change on the right as before. Dictated by: Moe Ivy MD 06/01/2020 07:22 Moe Ivy MD in [place] 06/01/2020 07:22
--- NOTE | 2020-05-31 20:31 | HMH.EDAMS ---
ED Disposition Clinical Impression: Severe sepsis with acute organ dysfunction, Septic shock, Obesity (BMI 30-39.9), Acute delirium, VICK (acute kidney injury), Encephalomalacia, Hyperkalemia UTI (urinary tract infection) Qualifiers: Urinary tract infection type: site unspecified Hematuria presence: without hematuria Qualified Code(s): N39.0 - Urinary tract infection, site not specified Cholelithiasis Qualifiers: Cholelithiasis location: gallbladder Cholecystitis presence: without cholecystitis Biliary obstruction: without biliary obstruction Qualified Code(s): K80.20 - Calculus of gallbladder without cholecystitis without obstruction Disposition: Admitted As Inpatient Condition on Discharge: Serious - Critical Care Critical Care Time: Yes Attestation: On 05/31/20, the high probability of a clinically significant, sudden or life threatening deterioration of the following system(s) required my full and direct attention, intervention and personal management. The time I documented below is in addition to time spent performing reported procedures but includes the following listed in this critical care notation. Total Critical Care Time: 90 Vital system(s) involved:: Metabolic Failure, Shock (Septic) My critical care processes included: Assessment & monitoring of V/S, Initial and Re-exams, Data Review/Interpretation, Coordinating Care, Medication Orders and management, Documentation Medical Decision Making - Medical Records Medical records reviewed: Yes: I reviewed the patient's medical records. - Josue Inquiry Pt receiving controlled substance: No Vital Signs: 05/31/20 20:10 05/31/20 20:30 05/31/20 21:00 Temperature 98.6 F Temperature Source Oral Pulse Rate [Left] 96 H 80 105 H Respiratory Rate 16 17 17 Blood Pressure [Left Arm] 92/72 L 82/58 L 112/64 Blood Pressure Mean [Left Arm] 78 66 80 Blood Pressure Source [Left Arm] Automatic Cuff Automatic Cuff Automatic Cuff Blood Pressure Position [Left Arm] Supine Supine Supine 02 Sat by Pulse Oximetry 94 L 92 L 95 Oxygen Delivery Method Room Air Room Air 05/31/20 21:30 05/31/20 22:00 05/31/20 22:30 Temperature Temperature Source Pulse Rate [Left] 104 H 103 H 105 H Respiratory Rate 17 18 17 Blood Pressure [Left Arm] 128/65 103/80 L 92/69 L Blood Pressure Mean [Left Arm] 86 87 76 Blood Pressure Source [Left Arm] Automatic Cuff Automatic Cuff Automatic Cuff Blood Pressure Position [Left Arm] Supine Supine Supine 02 Sat by Pulse Oximetry 95 94 L 95 Oxygen Delivery Method Room Air Room Air Room Air 05/31/20 23:00 06/01/20 00:51 Temperature Temperature Source Pulse Rate [Left] 102 H Respiratory Rate 17 18 Blood Pressure [Left Arm] 121/77 109/91 L Blood Pressure Mean [Left Arm] 91 97 Blood Pressure Source [Left Arm] Automatic Cuff Blood Pressure Position [Left Arm] Supine 02 Sat by Pulse Oximetry 93 L Oxygen Delivery Method Room Air - Lab Data Lab results reviewed: Yes: I reviewed the patient's lab results. Lab Results 05/31/20 21:00: Urine Color Yellow, Urine Appearance Cloudy, Urine pH 6.0, Ur Specific [place] 1.025, Urine Protein 3+, Urine Glucose (UA) Negative, Urine Ketones Negative, Urine Blood 2+, Urine Nitrate Negative, Urine Bilirubin Negative, Urine Urobilinogen 0.2, Ur Leukocyte Esterase 3+ A, Urine RBC 20-50, Urine WBC Tntc 05/31/20 21:05: WBC 14.8 H, RBC 4.38, Hgb 15.1, Hct 45.4, MCV 103.7 H, MCH 34.4 H, MCHC 33.2, RDW 14.9, Plt Count 168, MPV 8.9, Neut % (Auto) 86.7 H, Lymph % (Auto) 7.8 L, [place] % (Auto) 4.8, Eos % (Auto) 0.2, Baso % (Auto) 0.5, Neut # (Auto) 12.8 H, Lymph # (Auto) 1.2, [place] # (Auto) 0.7, Eos # (Auto) 0.0, Baso # (Auto) 0.1, Total Counted 100, Neutrophils % (Manual) 83 H, Band Neutrophils % 13.0 H, Lymphocytes % (Manual) 4 L, Platelet Estimate Normal, RBC Morphology Not Reportable, Macrocytosis 2+, Rouleaux 1+, ESR Cancelled 05/31/20 21:05: Lactate 3.6 H 05/31/20 21:05: SARS-CoV-2 IgG Ab (Rapid) Negative, SARS-CoV-2
[2020-05-31 21:32] LABS: Basophils # 0.1 K/mm3 (0-0.2); Basophils % 0.5 % (0.1-2.0); Eosinophils % 0.2 % (0.1-12.0); Hematocrit 45.4 % (37.0-47.0); Hemoglobin 15.1 g/dL (12.2-16.2); Lymphocytes # 1.2 K/mm3 (0.7-4.5); Lymphocytes % 7.8 % (10-50); Mean Corpuscular HGB Conc 33.2 g/dL (31.8-35.4); Mean Corpuscular Hemoglobin 34.4 pg (27.0-31.2); Mean Corpuscular Volume 103.7 fl (81-99); Mean Platelet Volume 8.9 fl (7.4-10.4); Monocytes # 0.7 K/mm3 (0.1-1.0); Monocytes % 4.8 % (1.7-9.3); Neutrophils # 12.8 K/mm3 (1.8-7.8); Neutrophils % 86.7 % (37.0-80.0); Platelet Count 168 K/mm3 (142-424); Red Blood Count 4.38 M/mm3 (4.20-5.40); Red Cell Distribution Width 14.9 % (11.5-17.5); White Blood Count 14.8 K/mm3 (4.8-10.8)
[2020-05-31 21:33] LABS: MANUAL DIFFERENTIAL MANUAL DIFFERENTIAL (MANUAL DIFF)
[2020-05-31 21:44] LABS: Lymphocytes % 4 % (10-50); Macrocytosis 2+; Neutrophils % 83 % (42-76); Platelet Estimate Normal; Rouleaux 1+; Total Cells Counted 100
[2020-05-31 21:49] LABS: Microscopic, Urine URINE MICROSCOPIC (MICROSCOPIC)
[2020-05-31 21:55] LABS: Appearance,Urine CLOUDY (Clear); Blood, Urine 2+ (Negative); Color,Urine YELLOW (Yellow); Glucose,Urine (UA) Negative (Negative); Ketones,Urine Negative (Negative); Leukocyte Esterase,Urine 3+ (Negative); Nitrate,Urine Negative (Negative); Protein,Urine 3+ (Negative); Specific Gravity, Urine 1.025 (1.005-1.030); Urobilinogen,Urine 0.2 EU/dl (0.2)
[2020-05-31 21:58] LABS: Bilirubin,Urine Negative (Negative)
[2020-05-31 21:59] LABS: Lactic Acid 3.6 mmol/L (0.7-2.1)
[2020-05-31 22:00] LABS: RBC,Urine 20-50 #/hpf (0-3); WBC,Urine TNTC #/hpf (0-3)
[2020-05-31 22:01] LABS: Coronavirus 19 IgG Antibody Negative (Negative); Coronavirus 19 IgM Antibody Negative (Negative)
[2020-05-31 22:36] LABS: Reflex Lactic Add Lactic Reflex
[2020-05-31 22:52] LABS: Chloride 105 mmol/L (98-107); Sodium 135 mmol/L (136-145)
[2020-05-31 22:55] LABS: Alanine Aminotransferase 60 U/L (12-78); Albumin Level 3.6 g/dl (3.5-5.0); Albumin/Globulin Ratio 0.9 (1.1-1.8); Alkaline Phosphatase 131 U/L (38-126); Amylase 40 U/L (30-110); Anion Gap 18.9 mEq/L (5-15); Aspartate Amino Transferase 159 U/L (14-36); Blood Urea Nitrogen 56 mg/dl (7-17); Calcium 8.3 mg/dl (8.4-10.2); Carbon Dioxide 18 mmol/L (22.0-30.0); Creatinine Clearance Estimated 22 mL/min (50-200); GFR (African American) 15 ML/MIN (>60); Globulin 4.2 g/dL (1.3-3.2); Glucose 106 mg/dl (74-100); Total Protein,Serum 7.8 g/dl (6.3-8.2)
[2020-05-31 22:57] LABS: Lactic Acid Follow Up (RFLX 1) 2.7 mmol/L (0.7-2.1)
--- NOTE | 2020-05-31 23:06 | XR_ITS ---
PROCEDURE: XR CHEST AP CLINICAL HISTORY: chf Shortness of breath COMPARISON: CR XR RIBS LT MIN 3V W CXR1V from 05/10/2019 CR XR CHEST AP from 05/20/[address] CHEST WO CON from 09/01/2019 CR XR CHEST AP from 10/24/2019 FINDINGS: The cardiomediastinal silhouette and pulmonary vascularity are within normal limits. The lungs are clear without infiltrates, suspicious nodules, or pleural effusions. No acute bony abnormalities. IMPRESSION: No acute findings. Dictated by: Moe Ivy MD 06/01/2020 07:06 Moe Ivy MD in [facility] 06/01/2020 07:06
--- NOTE | 2020-05-31 23:15 | CT_ITS ---
PROCEDURE: CT ABDOMEN PELVIS WO CON CLINICAL INDICATION: abd pain Right-sided abdominal pain COMPARISON: CT CT ABDOMEN PELVIS WO CON from 09/01/2019 TECHNIQUE: Axial images obtained with sagittal and coronal reformats. All CT scans at the facility use one or more dose reduction, viz: automated exposure control, ma/kV adjustment per patient size (including targeted exams where dose is matched to indication, i.e. head), or iterative reconstruction technique. FINDINGS: LOWER THORAX: Atelectatic or fibrotic changes are present in the lingula. ABDOMEN & PELVIS: The gallbladder is distended measuring to 10 4.5 cm with a stone present in the neck of the gallbladder. Liver and spleen have an unremarkable appearance. The left kidney is enlarged and appears edematous. There is stranding of the left perinephric renal fat. Acute pyelonephritis is considered. No evidence of obstructive uropathy. No ureteral calculi. There is a stone present in the lower pole of the right kidney at 6 mm. There are some mildly prominent retroperitoneal lymph nodes which are not significantly changed. No intestinal obstruction or free air. No evidence of appendicitis or diverticulitis. There is a Blackmon catheter present with some gas noted within nondistended urinary bladder. No acute bony findings. IMPRESSION: 1. Distended gallbladder with gallstone in the neck of the gallbladder. 2. Enlarged edematous appearing left kidney with stranding of the perinephric renal fat suggesting pyelonephritis. Dictated by: Moe Ivy MD 06/01/2020 07:48 Moe Ivy MD in [place] 06/01/2020 07:48
[2020-05-31 23:24] LABS: Potassium 6.9 mmoL/L (3.5-5.1)
[2020-05-31 23:25] LABS: Estimated Glomerular Filt Rate 12 ml/min (>60); Lipase < 10 U/L (23-300)
[2020-06-01] VITALS (10 sets, daily range): BP systolic 109–172; BP diastolic 72–100; PULSE 48–143; RESP 18–20; TEMP 36.8–39.2; O2SAT 90–95; BMI 33.3
--- NOTE | 2020-06-01 | ECG_ITS ---
APPROVED REPORT Exam: Resting ECG HR:103 bpm ECG Measurements Heart Rate 103 AXES WV 128 P 62 QRSd 78 QRS 17 QT 366 T -17 QTc 479 Conclusion Sinus tachycardia Cannot rule out Inferior infarct, age undetermined Abnormal ECG Electronically signed by : Juan Arthur, 06/01/2020 07:17:59
[2020-06-01 00:36] LABS: Reflex Lactic (2 hrs) Add Lactic Reflex
[2020-06-01 01:54] LABS: Chloride 107 mmol/L (98-107); Sodium 138 mmol/L (136-145)
[2020-06-01 01:57] LABS: Alanine Aminotransferase 57 U/L (12-78); Albumin Level 3.3 g/dl (3.5-5.0); Alkaline Phosphatase 97 U/L (38-126); Aspartate Amino Transferase 93 U/L (14-36); Bilirubin, Conjugated 0.3 mg/dL (0.0-0.3); Bilirubin,Direct 1.8 mg/dl (0.0-0.4); Bilirubin,Indirect 0.2 mg/dL (0.0-0.9); Bilirubin,Unconjugated 0.3 mg/dL (0.0-1.1); Blood Urea Nitrogen 57 mg/dl (7-17); Calcium 8.4 mg/dl (8.4-10.2); Carbon Dioxide 20 mmol/L (22.0-30.0); Creatinine Clearance Estimated 22 mL/min (50-200); GFR (African American) 15 ML/MIN (>60); Glucose 102 mg/dl (74-100); Total Protein,Serum 7.7 g/dl (6.3-8.2)
[2020-06-01 01:59] LABS: Lactic Acid Follow up (RFLX 2) 3.3 mmol/L (0.7-2.1)
[2020-06-01 02:00] LABS: Estimated Glomerular Filt Rate 12 ml/min (>60)
--- NOTE | 2020-06-01 02:35 | PC.NURSE ---
patient up to floor via stretcher.
--- NOTE | 2020-06-01 03:18 | PC.NURSE ---
Pt is A&O to person and place, pt denies any current pain or nausea. Pt requesting something to drink, educated pt on her current NPO order and oral care & mouth moisturizer applied. Bed alarm active and seizure pads in use for safety. Lungs CTA. ABD is soft, round, and pt states last BM was yesterday . Left sided deficits from previous CVA. Also noted pt has a mesh in lieu of right sided skull. Blackmon cath in place draining cloudy, tea colored urine with small clots. Blackmon anchored to right thigh. Call light within reach.
--- NOTE | 2020-06-01 07:32 | HMH.PHAVTE ---
[facility] Pharmacy VTE Monitoring - Patient Demographics Admission date: 05/31/20 Report Date: 06/01/20 Time: 07:33 Allergies/Adverse Reactions: Patient Allergies No Known Allergies Allergy (Verified 05/18/20 16:05) Height: 1.5 m Weight: 75.07 kg Patient Problems: Current Active Problems Severe sepsis with acute organ dysfunction (Acute) Septic shock (Acute) Obesity (BMI 30-39.9) (Acute) UTI (urinary tract infection) (Acute) Acute delirium (Acute) VICK (acute kidney injury) (Acute) Encephalomalacia (Acute) Cholelithiasis (Acute) Hyperkalemia (Acute) - VTE Risk Labs: VTE Related Lab Results Hgb 15.1 g/dL (12.2-16.2) 05/31/20 21:05 Hct 45.4 % (37.0-47.0) 05/31/20 21:05 Plt Count 168 K/mm3 (142-424) 05/31/20 21:05 BUN 57 mg/dl (7-17) H 06/01/20 01:40 Creatinine 3.80 mg/dl (0.52-1.04) H 06/01/20 01:40 Estimated Creat Clear 22 mL/min (50-200) 06/01/20 01:40 VTE Score: 7 VTE Risk Level: Moderate Risk - Prophylaxis VTE Prophylaxis Ordered?: Yes Types of VTE Prophylaxis: TEDS Knee High Location of Applied Device: Bilateral Lower Extremeties
--- NOTE | 2020-06-01 08:00 | US_ITS ---
PROCEDURE: US GALLBLADDER CLINICAL INDICATION: abn lft and ct Sepsis, abnormal CT, patient unresponsive COMPARISON: CT CT ABDOMEN PELVIS WO CON from 05/31/2020 FINDINGS: PANCREAS: Unremarkable. No obvious mass or abnormal fluid collection. No ductal dilatation LIVER: No focal liver lesions demonstrated. Homogeneous echogenicity. No intrahepatic biliary ductal dilatation evident. There is appropriate direction of blood flow within a non dilated portal vein RIGHT KIDNEY: There is scarring of the right kidney with a small echogenic focus in the superior aspect of the left kidney suggesting a small stone as seen on the CT scan. GALLBLADDER: The gallbladder is distended measuring 10 by 4.4 cm. There is a gallstone present no gallbladder wall thickening or biliary dilatation is evident. Common bile duct measures 3 mm. There is a question of a small amount of pericholecystic fluid. This however is only demonstrated on 1 image and could be artifactual. IMPRESSION: Distended gallbladder with gallstone. No gallbladder wall thickening or biliary dilatation. There was a question of a minimal amount of pericholecystic fluid versus artifact. Dictated by: Moe Ivy MD 06/01/2020 09:56 Moe Ivy MD in [place] 06/01/2020 09:56
--- NOTE | 2020-06-01 08:10 | HMH.PHAINT ---
MEDICATION RECONCILIATION COMPLETED ON PATIENT USING MAR FROM HALFWAY. -ELIZA COLON, GAILD
[2020-06-01 09:15] LABS: Basophils % 0.3 % (0.1-2.0); Eosinophils % 0.1 % (0.1-12.0); Hematocrit 38.1 % (37.0-47.0); Lymphocytes # 1.2 K/mm3 (0.7-4.5); Lymphocytes % 10.6 % (10-50); Mean Corpuscular HGB Conc 34.2 g/dL (31.8-35.4); Mean Corpuscular Hemoglobin 34.5 pg (27.0-31.2); Mean Corpuscular Volume 100.9 fl (81-99); Mean Platelet Volume 9.7 fl (7.4-10.4); Monocytes # 0.9 K/mm3 (0.1-1.0); Monocytes % 7.6 % (1.7-9.3); Neutrophils # 9.3 K/mm3 (1.8-7.8); Neutrophils % 81.3 % (37.0-80.0); Platelet Count 130 K/mm3 (142-424); Red Blood Count 3.78 M/mm3 (4.20-5.40); Red Cell Distribution Width 14.9 % (11.5-17.5); White Blood Count 11.4 K/mm3 (4.8-10.8)
[2020-06-01 09:33] LABS: Chloride 115 mmol/L (98-107); Sodium 142 mmol/L (136-145)
[2020-06-01 09:36] LABS: Blood Urea Nitrogen 59 mg/dl (7-17); Creatinine Clearance Estimated 19 mL/min (50-200); Estimated Glomerular Filt Rate 13 ml/min (>60); GFR (African American) 15 ML/MIN (>60)
[2020-06-01 09:37] LABS: Calcium 8.2 mg/dl (8.4-10.2); Carbon Dioxide 14 mmol/L (22.0-30.0); Glucose 91 mg/dl (74-100)
--- NOTE | 2020-06-01 09:55 | PC.NURSE ---
Called and left message for Dr. Wagner's office ([place]) in [place] to creatinine of 3.7, notification. This is lower than prior lab value.
--- NOTE | 2020-06-01 10:32 | SW/DCPLANNER ---
Addendum entered by Arelis Cottonwood 06/05/20 14:20: Shayan Jamil (son to notify) [phone] Yuriy Jamil (son) [phone] Selina Jamil (sister) [phone] Addendum entered by Arelis Cottonwood 06/05/20 13:34: I have spoke with patients son (Shayan Jamil) whom stated that he is involved with his mother and would help with any decision making. Shayan asked that Dr Wagner/ Khloe contact him at [phone] today after 3:30PM when he gets off work. I have relayed this message to Dr Wagner and Khloe. Addendum entered by Arelis Cottonwood 06/05/20 10:20: I have updated Mercedes at [facility] regarding this patient. Patient is not ready for discharge today. Addendum entered by Arelis Cottonwood 06/04/20 12:56: I have updated Mercedes at [facility] regarding this patient. Original Note: This patient currently resides at [facility]. I have spoke with Jasmeet at [facility] and she has stated that patient is [facility] level of care and they will accept this patient back once medically stable for discharge. Patient will require a COVID swab prior to discharge.
--- NOTE | 2020-06-01 11:13 | PC.NURSE ---
FELIX Mc has been told about temps
--- NOTE | 2020-06-01 14:34 | HMH.HP ---
*Admission Date: 05/31/20 *Chief complaint: ams *History of present illness: 60 yr old female presented to ed via ems from [facility] for ams. Pt was neg for covid. Per staff pt has continued to decline in mental status and was becoming difficult to arouse. Per nursing staff she became unarousal and bp was low. Pt was sent to ed for eval. Pt admitted for UTI, sepsis with blood cx pending [facility] History I have reviewed the patient's past medical history: Yes Medical History: Reports:: Anxiety, Cerebrovascular Accident, Hepatitis, Hyperlipidemia, Hypertension, Seizures Denies:: Diabetes Mellitus Type 1, Diabetes Mellitus Type 2 Comment Only: Cancer (Lung mass) *Have you ever received a pneumonia vaccine?: Yes *Have you received a flu vaccine this season?: Yes Other Medical History: Reports: Liver Disease (Chronic Hep C) Laterality Cases: Right: Other Other Surgeries: Yes: Other Fractures: Yes - *Social History Smoking Status: Current every day smoker Tobacco Type: cigarettes # Packs/Day (cigarettes): 1 Alcohol Intake: never *Occupational Status:: disabled Housing: [facility] *Travel in the last 8 weeks: None - Psychiatric History Pschychiatric History:: Reports:: Anxiety Family Hx:: Unable to obtain Review of Systems - Review of Systems Review of systems:: unable to obtain Meds Home Medications Medication Instructions Recorded Confirmed Type Aspirin [Aspirin 81mg chewable 81 mg PO DAILY 08/11/17 06/01/20 History tab] PARoxetine HCL [Paroxetine HCl] 40 mg PO DAILY 08/11/17 06/01/20 History atorvastatin 10 mg tablet 10 mg PO HS tab 08/17/17 06/01/20 History Acetaminophen [Tylenol 500mg 500 mg PO Q6HP PRN 05/31/20 06/01/20 History tablet] Buspirone HCl [Buspirone 15 mg 15 mg PO TID 05/31/20 06/01/20 History Tablets] Lactulose [Lactulose 10gm/15ml 20 gm PO DAILYP PRN 05/31/20 06/01/20 History Oral Soln] Loratadine [Claritin] 10 mg PO DAILYP PRN 05/31/20 06/01/20 History OLANZapine [Olanzapine] 5 mg PO DAILY 05/31/20 06/01/20 History OLANZapine [Olanzapine] 10 mg PO HS 05/31/20 06/01/20 History Sennosides [Senna] 8.6 mg PO BID 05/31/20 06/01/20 History ondansetron HCL [Zofran 4mg Tab*] 4 mg PO Q6HP PRN 05/31/20 06/01/20 History Acetaminophen with Codeine 1 each PO TID 06/01/20 06/01/20 History [Tylenol with Codeine #3 tablet] Ibuprofen [Ibuprofen 400mg 400 mg PO Q6HP PRN 06/01/20 06/01/20 History Tablet] LORazepam [Lorazepam 0.5mg Tablet] 0.5 mg PO TID 06/01/20 06/01/20 History Losartan Potassium [Cozaar 100mg 100 mg PO DAILY 06/01/20 06/01/20 History Tablets] Metoprolol Succinate [Metoprolol 25 mg PO DAILY 06/01/20 06/01/20 History Succinate 25mg Tablet*] Allergies Allergy/AdvReac Type Severity Reaction Status Date / Time No Known Allergies Allergy Verified 05/18/20 16:05 Exam Vital signs and Labs for Last 24 Hours: Temp Pulse Resp BP Pulse Ox 101.4 F H 48 L 20 118/72 91 L 06/01/20 11:10 06/01/20 11:10 06/01/20 11:10 06/01/20 11:10 06/01/20 11:10 Laboratory Results - last 24 hr 05/31/20 21:00: Urine Color Yellow, Urine Appearance Cloudy, Urine pH 6.0, Ur Specific [place] 1.025, Urine Protein 3+, Urine Glucose (UA) Negative, Urine Ketones Negative, Urine Blood 2+, Urine Nitrate Negative, Urine Bilirubin Negative, Urine Urobilinogen 0.2, Ur Leukocyte Esterase 3+ A, Urine RBC 20-50, Urine WBC Tntc 05/31/20 21:05: WBC 14.8 H, RBC 4.38, Hgb 15.1, Hct 45.4, MCV 103.7 H, MCH 34.4 H, MCHC 33.2, RDW 14.9, Plt Count 168, MPV 8.9, Neut % (Auto) 86.7 H, Lymph % (Auto) 7.8 L, [place] % (Auto) 4.8, Eos % (Auto) 0.2, Baso % (Auto) 0.5, Neut # (Auto) 12.8 H, Lymph # (Auto) 1.2, [place] # (Auto) 0.7, Eos # (Auto) 0.0, Baso # (Auto) 0.1, Total Counted 100, Neutrophils % (Manual) 83 H, Band Neutrophils % 13.0 H, Lymphocytes % (Manual) 4 L, Platelet Estimate Normal, RBC Morphology Not Reportable, Macrocytosis 2+, Rouleaux 1+, ESR Cancelled 05/31/20 21:05: La
--- NOTE | 2020-06-01 15:26 | PC.NURSE ---
Did notify Dr. Wagner of both positive blood cx's on patient. He gave NNO and stated to contact pharmacy and make sure no other abt was needed. This nurse spoke with Cheikh and he stated ecoli was covered with abt pt was currently on, which is invanz.
--- NOTE | 2020-06-01 16:28 | PC.NURSE ---
Pt alert to self. Has had temp today. Last one checked 101.2. More prn tylenol suppository given. Did also call and speak with ovidio in re to pts bp and to make dr thomason aware. Pts home meds arent ordered. Cool clothes applied and ice pack on neck to aid in cooling, also room temp turned down. Seizure pads in place. CB in reach. L sided weakness -not new. Will cont to mx this shift. Ovidio from Dr. Cordero office called back and MD Dr. Thomason gave NNO at this time. Lungs cta, bs x 4 and s1,s2.
--- NOTE | 2020-06-01 19:45 | PC.NURSE ---
This nurse did notify Dr. Wagner home meds hadn't been reordered, nno given.
--- NOTE | 2020-06-01 21:32 | PC.NURSE ---
Made MD aware of pt's current orientation status. Pt noted nonverbal and hard to arouse upon initial assessment. Pt woken with sternal rub. Not able to follow commands at this time. FS GLU obtained, noted 84. This is a change from previous shift. No new orders given per MD.
[2020-06-01 22:05] LABS: POC Glucose,Bedside 84 (70-110)
[2020-06-02] VITALS: BP 175/79; PULSE 87; RESP 20; TEMP 36.7; O2SAT 93
[2020-06-02 04:00] VITALS: BP 160/88; PULSE 97; RESP 20; TEMP 37.1; O2SAT 90
[2020-06-02 05:51] VITALS: BMI 35.1
[2020-06-02 07:27] LABS: Basophils % 0.4 % (0.1-2.0); Eosinophils % 0.5 % (0.1-12.0); Hematocrit 40.3 % (37.0-47.0); Hemoglobin 13.8 g/dL (12.2-16.2); Lymphocytes % 15.7 % (10-50); Mean Corpuscular HGB Conc 34.4 g/dL (31.8-35.4); Mean Corpuscular Hemoglobin 34.8 pg (27.0-31.2); Mean Corpuscular Volume 101.1 fl (81-99); Monocytes # 0.6 K/mm3 (0.1-1.0); Monocytes % 8.9 % (1.7-9.3); Neutrophils # 4.9 K/mm3 (1.8-7.8); Neutrophils % 74.4 % (37.0-80.0); Platelet Count 104 K/mm3 (142-424); Red Blood Count 3.98 M/mm3 (4.20-5.40); Red Cell Distribution Width 14.5 % (11.5-17.5); White Blood Count 6.6 K/mm3 (4.8-10.8)
[2020-06-02 07:44] LABS: Chloride 122 mmol/L (98-107)
[2020-06-02 07:45] LABS: Potassium 4.8 mmoL/L (3.5-5.1); Sodium 146 mmol/L (136-145)
[2020-06-02 07:47] LABS: Blood Urea Nitrogen 68 mg/dl (7-17); Creatinine Clearance Estimated 26 mL/min (50-200); Estimated Glomerular Filt Rate 17 ml/min (>60); GFR (African American) 20 ML/MIN (>60)
[2020-06-02 07:48] LABS: Anion Gap 15.8 mEq/L (5-15); Calcium 8.4 mg/dl (8.4-10.2); Carbon Dioxide 13 mmol/L (22.0-30.0); Glucose 84 mg/dl (74-100)
[2020-06-02 08:00] VITALS: BP 158/108; PULSE 100; RESP 18; TEMP 36.7; O2SAT 93
[2020-06-02 08:05] LABS: Procalcitonin 35.1 ng/mL (0.0-2.0)
--- NOTE | 2020-06-02 08:23 | PC.NURSE ---
Pt is noted more alert this am. Was able to state her first name and month to this RN. Pt also able to follow bilateral hand exhibit artist commands, left side noted with mild weakness. Pt noted with fatigue. Pt rested well with eyes closed for majority of shift. Pt was difficult to arouse at beginning of shift with sternal rub. MD notified with no new orders given. Tolerated RA well with no c/o SOA. Q2H turn per staff. Remains NPO t/o shift. Seizure precautions in place. FC site noted c/d/i. Urine noted clear and bright yellow in color. No BM noted this shift. VSS. Remains safe. Call light within reach. Will continue to monitor.
--- NOTE | 2020-06-02 09:08 | HMH.ACPN2 ---
Internal Medicine - PN: Subj *Date: 06/02/20 *Time: 09:10 Interval history: Patient sitting up in bed in no apparent distress. When asked questions patient's answers are unintelligible. Pulmonary results of blood and urine cultures as gram-negative rods and receiving Invanz IV, Awaiting final results. Will be up and out of chair today and Blackmon catheter DC'd. Exam Vital signs and Labs for Last 24 Hours: Temp Pulse Resp BP Pulse Ox 98.0 F 100 H 18 158/108 H 93 L 06/02/20 08:00 06/02/20 08:00 06/02/20 08:00 06/02/20 08:00 06/02/20 08:00 Laboratory Results - last 24 hr 05/31/20 21:00: Urine Color Yellow, Urine Appearance Cloudy, Urine pH 6.0, Ur Specific [place] 1.025, Urine Protein 3+, Urine Glucose (UA) Negative, Urine Ketones Negative, Urine Blood 2+, Urine Nitrate Negative, Urine Bilirubin Negative, Urine Urobilinogen 0.2, Ur Leukocyte Esterase 3+ A, Urine RBC 20-50, Urine WBC Tntc 06/01/20 08:25: WBC 11.4 H, RBC 3.78 L, Hgb 13.0 D, Hct 38.1, MCV 100.9 H, MCH 34.5 H, MCHC 34.2, RDW 14.9, Plt Count 130 L, MPV 9.7, Neut % (Auto) 81.3 H, Lymph % (Auto) 10.6, [place] % (Auto) 7.6, Eos % (Auto) 0.1, Baso % (Auto) 0.3, Neut # (Auto) 9.3 H, Lymph # (Auto) 1.2, [place] # (Auto) 0.9, Eos # (Auto) 0.0, Baso # (Auto) 0.0 06/01/20 08:25: Sodium 142, Potassium 5.0, Chloride 115 H, Carbon Dioxide 14 L D, Anion Gap 18.0 H, BUN 59 H, Creatinine 3.70 H, Estimated Creat Clear 19, Estimated GFR 13 L*, Est GFR ( Amer) 15 L*, Glucose 91, Calcium 8.2 L 06/01/20 21:28: POC Glucose 84 06/02/20 06:45: WBC 6.6 D, RBC 3.98 L, Hgb 13.8, Hct 40.3, MCV 101.1 H, MCH 34.8 H, MCHC 34.4, RDW 14.5, Plt Count 104 L, MPV 10.0, Neut % (Auto) 74.4, Lymph % (Auto) 15.7, [place] % (Auto) 8.9, Eos % (Auto) 0.5, Baso % (Auto) 0.4, Neut # (Auto) 4.9, Lymph # (Auto) 1.0, [place] # (Auto) 0.6, Eos # (Auto) 0.0, Baso # (Auto) 0.0 06/02/20 06:45: Sodium 146 H, Potassium 4.8, Chloride 122 H, Carbon Dioxide 13 L, Anion Gap 15.8 H, BUN 68 H, Creatinine 2.90 H D, Estimated Creat Clear 26, Estimated GFR 17 L*, Est GFR ( Amer) 20 L D, Glucose 84, Calcium 8.4, Procalcitonin 35.1 H I & O for Last 24 hours: Intake & Output 05/30/20 05/31/20 06/01/20 06/02/20 23:59 23:59 23:59 23:59 Intake Total 7850 / 7850 1262 / 1262 Output Total 1220 / 1220 625 / 625 Balance 6630 / 6630 637 / 637 Weight 190 lb 165 lb 8 oz 174 lb 3 oz Microbiology Reports for the Last 24 Hours: Microbiology 05/31/20 21:05 Blood Blood Culture - Preliminary Gram Negative Rods 05/31/20 21:05 Blood Blood Culture - Preliminary Gram Negative Rods 05/31/20 21:00 Urine,Clean Catch Urine Culture - Preliminary Gram Negative Rods - Constitutional no acute distress, obese - *Routine HEENT Exam Head: Present: normocephalic Eye: Present: EOMI ENT: Present: mucous membranes moist - *Routine Neck Exam Present: trachea midline. Absent: tracheal deviation - *Routine Respiratory Exam Present: CTA bilaterally. Absent: accessory muscle use - *Routine Cardiovascular Exam Present: RRR - *Routine Abdominal Exam Present: soft, normoactive bowel sounds. Absent: tenderness, firm - *Routine Extremities Exam Present: pulses intact. Absent: clubbing, edema, calf tenderness - *Routine Skin Exam Present: intact, warm. Absent: cyanosis, jaundice - *Routine Neurological Exam Present: alert. Absent: normal speech - Routine Psychiatric Exam Present: unable to assess Assessment and Plan (1) Bacteremia Status: Acute Category: Medical Code(s): R78.81 - Bacteremia (2) VICK (acute kidney injury) Status: Acute Category: Medical Code(s): N17.9 - Acute kidney failure, unspecified (3) Obesity (BMI 30-39.9) Status: Acute Category: Medical Code(s): E66.9 - Obesity, unspecified (4) Septic shock Status: Acute Category: Medical Code(s): A41.9 - Sepsis, unspecified organ
[2020-06-02 12:00] VITALS: BP 140/88; PULSE 82; RESP 18; TEMP 36.1; O2SAT 97
[2020-06-02 15:44] VITALS: BP 146/88; PULSE 84; RESP 20; TEMP 37.2; O2SAT 96
[2020-06-02 20:00] VITALS: BP 171/100; PULSE 99; RESP 17; TEMP 36.7; O2SAT 95
--- NOTE | 2020-06-02 20:52 | PC.NURSE ---
PT IS SITTING UP IN THE CHAIR. PT IS A TOTAL LIFT TO GET OOB. ALERT TO SELF ONLY. SPEECH IS VERY MUMBLED. LEFT SIDE FLACCID FROM CVA IN THE PAST. TURNED AND REPOSITIONED Q2H. ORAL CARE PROVIDED. CATHETER DC'D AT 1800. LUNG SOUNDS CLEAR. ABDOMEN SOFT/NON TENDER WITH ACTIVE BOWEL SOUNDS. VSS. WILL CONTINUE TO MONITOR.
[2020-06-03] VITALS (9 sets, daily range): BP systolic 167–210; BP diastolic 79–104; PULSE 60–122; RESP 16–24; TEMP 36.8–37.7; O2SAT 89–96; BMI 35.5
--- NOTE | 2020-06-03 05:01 | PC.NURSE ---
pt alert to self only. lungs CTA pt voids per attends. turned q2 and oral care. pt has rested quietly
[2020-06-03 07:55] LABS: Basophils % 0.2 % (0.1-2.0); Eosinophils % 0.7 % (0.1-12.0); Hematocrit 37.6 % (37.0-47.0); Hemoglobin 12.3 g/dL (12.2-16.2); Lymphocytes # 0.8 K/mm3 (0.7-4.5); Lymphocytes % 13.2 % (10-50); Mean Corpuscular HGB Conc 32.8 g/dL (31.8-35.4); Mean Corpuscular Hemoglobin 33.9 pg (27.0-31.2); Mean Corpuscular Volume 103.3 fl (81-99); Mean Platelet Volume 9.5 fl (7.4-10.4); Monocytes # 0.4 K/mm3 (0.1-1.0); Monocytes % 6.1 % (1.7-9.3); Neutrophils % 79.8 % (37.0-80.0); Platelet Count 76 K/mm3 (142-424); Red Blood Count 3.64 M/mm3 (4.20-5.40); Red Cell Distribution Width 14.7 % (11.5-17.5); White Blood Count 6.2 K/mm3 (4.8-10.8)
[2020-06-03 08:09] LABS: Anion Gap 15.5 mEq/L (5-15); Blood Urea Nitrogen 62 mg/dl (7-17); Calcium 8.6 mg/dl (8.4-10.2); Carbon Dioxide 14 mmol/L (22.0-30.0); Chloride 124 mmol/L (98-107); Creatinine Clearance Estimated 32 mL/min (50-200); Estimated Glomerular Filt Rate 21 ml/min (>60); GFR (African American) 25 ML/MIN (>60); Glucose 98 mg/dl (74-100); Potassium 3.5 mmoL/L (3.5-5.1)
[2020-06-03 08:15] LABS: Sodium 150 mmol/L (136-145)
[2020-06-03 08:25] LABS: Procalcitonin 19.9 ng/mL (0.0-2.0)
--- NOTE | 2020-06-03 10:36 | HMH.ACPN2 ---
Internal Medicine - PN: Subj *Date: 06/03/20 *Time: 12:17 Interval history: 60-year-old female patient living in bed, moans and uses garbled language when stimulated. Urine cultures and blood cultures have all resulted E. coli and all are sensitive to ertapenem which she has been on IV since her admittance. Her procalcitonin level today has decreased to 19.9 Exam Vital signs and Labs for Last 24 Hours: Temp Pulse Resp BP Pulse Ox 99.9 F H 60 16 190/100 H 93 L 06/03/20 09:00 06/03/20 08:25 06/03/20 08:25 06/03/20 08:25 06/03/20 09:00 Laboratory Results - last 24 hr 06/03/20 07:45: WBC 6.2, RBC 3.64 L, Hgb 12.3, Hct 37.6, MCV 103.3 H, MCH 33.9 H, MCHC 32.8, RDW 14.7, Plt Count 76 L D, MPV 9.5, Neut % (Auto) 79.8, Lymph % (Auto) 13.2, [place] % (Auto) 6.1, Eos % (Auto) 0.7, Baso % (Auto) 0.2, Neut # (Auto) 5.0, Lymph # (Auto) 0.8, [place] # (Auto) 0.4, Eos # (Auto) 0.0, Baso # (Auto) 0.0 06/03/20 07:45: Sodium 150 H, Potassium 3.5 D, Chloride 124 H, Carbon Dioxide 14 L, Anion Gap 15.5 H, BUN 62 H, Creatinine 2.40 H, Estimated Creat Clear 32, Estimated GFR 21 L, Est GFR ( Amer) 25 L D, Glucose 98, Calcium 8.6, Procalcitonin 19.9 H I & O for Last 24 hours: Intake & Output 05/31/20 06/01/20 06/02/20 06/03/20 23:59 23:59 23:59 23:59 Intake Total 7850 / 7850 1262 / 1262 1014 / 1014 Output Total 1220 / 1220 1125 / 1125 Balance 6630 / 6630 137 / 137 1014 / 1014 Weight 190 lb 165 lb 8 oz 174 lb 3 oz 176 lb 3 oz Microbiology Reports for the Last 24 Hours: Microbiology 05/31/20 21:05 Blood Blood Culture - Final Escherichia coli 05/31/20 21:05 Blood Blood Culture - Final Escherichia coli 05/31/20 21:00 Urine,Clean Catch Urine Culture - Final Escherichia coli - Constitutional no acute distress, chronically ill appearing - *Routine HEENT Exam Head: Present: normocephalic Eye: Present: EOMI ENT: Present: mucous membranes moist - *Routine Neck Exam Present: trachea midline. Absent: tracheal deviation - *Routine Respiratory Exam Present: CTA bilaterally. Absent: accessory muscle use - *Routine Cardiovascular Exam Present: RRR. Absent: irregular rhythm - *Routine Abdominal Exam Present: soft, normoactive bowel sounds. Absent: tenderness, firm - *Routine Extremities Exam Present: pulses intact. Absent: clubbing, calf tenderness - *Routine Skin Exam Present: intact, dry, warm. Absent: cyanosis, erythema - *Routine Neurological Exam Present: altered mental status - Routine Psychiatric Exam Present: unable to assess Assessment and Plan (1) Bacteremia Status: Acute Category: Medical Code(s): R78.81 - Bacteremia (2) VICK (acute kidney injury) Status: Acute Category: Medical Code(s): N17.9 - Acute kidney failure, unspecified (3) Obesity (BMI 30-39.9) Status: Acute Category: Medical Code(s): E66.9 - Obesity, unspecified (4) Septic shock Status: Acute Category: Medical Code(s): A41.9 - Sepsis, unspecified organism; R65.21 - Severe sepsis with septic shock (5) Severe sepsis with acute organ dysfunction Status: Acute Category: Medical Code(s): A41.9 - Sepsis, unspecified organism; R65.20 - Severe sepsis without septic shock (6) UTI (urinary tract infection) Status: Acute Qualifiers: Urinary tract infection type: site unspecified Hematuria presence: without hematuria Qualified Code(s): N39.0 - Urinary tract infection, site not specified Category: Medical Code(s): N39.0 - Urinary tract infection, site not specified (7) Altered mental status Status: Acute Qualifiers: Altered mental status type: unspecified Qualified Code(s): R41.82 - Altered mental status, unspecified Category: Medical Code(s): R41.82 - Altered mental status, unspecified - Assessment and plan all Dx Assessment and Plan for all problems:: Gris
--- NOTE | 2020-06-03 13:41 | DIET.NUTRFU ---
Pt refusing PO intake, this RD attempted to feed her and she would not open her mouth for bites or suck through straw. Does seem to have some comprehension and gargled speech, but did not respond to cueing. Spoke with pt's RN at [facility] and pt does have hx guarding/refusing PO intake at times. AMS and abdominal pain likely factors as well. Confirmed she is on soft mechanical diet with thin liquids there. Encouragement/cueing and supplement offers with meal refusals appreciated.
[2020-06-04] VITALS (7 sets, daily range): BP systolic 131–215; BP diastolic 71–113; PULSE 77–96; RESP 14–19; TEMP 36.2–37.2; O2SAT 92–97
--- NOTE | 2020-06-04 04:48 | PC.NURSE ---
The bedscale not registering patients weight and patient is not able to stand out of bed safely nurse notified
--- NOTE | 2020-06-04 06:17 | PC.NURSE ---
pt alert to self only. lungs CTA pt voids per attends. turned q2 and oral care. pt has rested quietly
[2020-06-04 07:03] LABS: Basophils % 0.3 % (0.1-2.0); Eosinophils # 0.1 K/mm3 (0.0-0.4); Eosinophils % 1.2 % (0.1-12.0); Hematocrit 39.5 % (37.0-47.0); Hemoglobin 12.8 g/dL (12.2-16.2); Lymphocytes # 1.2 K/mm3 (0.7-4.5); Mean Corpuscular HGB Conc 32.3 g/dL (31.8-35.4); Mean Corpuscular Hemoglobin 33.5 pg (27.0-31.2); Mean Corpuscular Volume 103.6 fl (81-99); Mean Platelet Volume 9.4 fl (7.4-10.4); Monocytes # 0.4 K/mm3 (0.1-1.0); Monocytes % 4.7 % (1.7-9.3); Neutrophils # 6.3 K/mm3 (1.8-7.8); Neutrophils % 78.8 % (37.0-80.0); Platelet Count 96 K/mm3 (142-424); Red Blood Count 3.82 M/mm3 (4.20-5.40); Red Cell Distribution Width 14.9 % (11.5-17.5); White Blood Count 7.9 K/mm3 (4.8-10.8)
[2020-06-04 07:10] LABS: Potassium 3.3 mmoL/L (3.5-5.1)
[2020-06-04 07:13] LABS: Anion Gap 11.3 mEq/L (5-15); Blood Urea Nitrogen 61 mg/dl (7-17); Carbon Dioxide 16 mmol/L (22.0-30.0); Creatinine Clearance Estimated 36 mL/min (50-200); Estimated Glomerular Filt Rate 24 ml/min (>60); GFR (African American) 29 ML/MIN (>60)
[2020-06-04 07:14] LABS: Calcium 8.5 mg/dl (8.4-10.2); Glucose 86 mg/dl (74-100)
[2020-06-04 07:17] LABS: Chloride 126 mmol/L (98-107); Sodium 150 mmol/L (136-145)
[2020-06-04 07:28] LABS: Procalcitonin 13.8 ng/mL (0.0-2.0)
--- NOTE | 2020-06-04 09:20 | HMH.ACPN2 ---
Internal Medicine - PN: Subj *Date: 06/04/20 *Time: 09:20 Interval history: pt laying in bed states ok when asked how she feels. Exam Vital signs and Labs for Last 24 Hours: Temp Pulse Resp BP Pulse Ox 97.9 F 96 H 15 206/110 H 95 06/04/20 08:00 06/04/20 08:00 06/04/20 08:00 06/04/20 08:00 06/04/20 08:00 Laboratory Results - last 24 hr 06/04/20 06:12: WBC 7.9 D, RBC 3.82 L, Hgb 12.8, Hct 39.5, MCV 103.6 H, MCH 33.5 H, MCHC 32.3, RDW 14.9, Plt Count 96 L D, MPV 9.4, Neut % (Auto) 78.8, Lymph % (Auto) 15.0, Dickey % (Auto) 4.7, Eos % (Auto) 1.2, Baso % (Auto) 0.3, Neut # (Auto) 6.3, Lymph # (Auto) 1.2, Dickey # (Auto) 0.4, Eos # (Auto) 0.1, Baso # (Auto) 0.0 06/04/20 06:12: Sodium 150 H, Potassium 3.3 L, Chloride 126 H, Carbon Dioxide 16 L, Anion Gap 11.3, BUN 61 H, Creatinine 2.10 H, Estimated Creat Clear 36, Estimated GFR 24 L, Est GFR ( Amer) 29 L, Glucose 86, Calcium 8.5, Procalcitonin 13.8 H I & O for Last 24 hours: Intake & Output 06/01/20 06/02/20 06/03/20 06/04/20 11:59 11:59 11:59 11:59 Intake Total 6650 / 6650 2462 / 2462 1014 / 1014 1565 / 1565 Output Total 820 / 820 1025 / 1225 500 / 500 Balance 5830 / 5830 1437 / 1237 514 / 514 1565 / 1565 Weight 165 lb 8 oz 174 lb 3 oz 176 lb 3 oz 176 lb 5.917 oz Microbiology Reports for the Last 24 Hours: Microbiology 05/31/20 21:05 Blood Blood Culture - Final Escherichia coli 05/31/20 21:05 Blood Blood Culture - Final Escherichia coli 05/31/20 21:00 Urine,Clean Catch Urine Culture - Final Escherichia coli - Constitutional no acute distress, morbidly obese - *Routine HEENT Exam Head: Present: normocephalic Eye: Present: PERRL ENT: Present: mucous membranes moist - *Routine Neck Exam Present: supple. Absent: lymphadenopathy - *Routine Respiratory Exam Present: wheezes - *Routine Cardiovascular Exam Present: RRR - *Routine Abdominal Exam Present: soft, normoactive bowel sounds. Absent: tenderness - *Routine Extremities Exam Present: edema, normal capillary refill. Absent: cyanosis, clubbing - *Routine Skin Exam Present: warm. Absent: rash - *Routine Neurological Exam Present: alert, oriented X3 - Routine Psychiatric Exam Present: normal affect Assessment and Plan (1) Bacteremia Status: Acute Category: Medical Code(s): R78.81 - Bacteremia (2) VICK (acute kidney injury) Status: Acute Category: Medical Code(s): N17.9 - Acute kidney failure, unspecified (3) Obesity (BMI 30-39.9) Status: Acute Category: Medical Code(s): E66.9 - Obesity, unspecified (4) Septic shock Status: Acute Category: Medical Code(s): A41.9 - Sepsis, unspecified organism; R65.21 - Severe sepsis with septic shock (5) Severe sepsis with acute organ dysfunction Status: Acute Category: Medical Code(s): A41.9 - Sepsis, unspecified organism; R65.20 - Severe sepsis without septic shock (6) UTI (urinary tract infection) Status: Acute Qualifiers: Urinary tract infection type: site unspecified Hematuria presence: without hematuria Qualified Code(s): N39.0 - Urinary tract infection, site not specified Category: Medical Code(s): N39.0 - Urinary tract infection, site not specified (7) Altered mental status Status: Acute Qualifiers: Altered mental status type: unspecified Qualified Code(s): R41.82 - Altered mental status, unspecified Category: Medical Code(s): R41.82 - Altered mental status, unspecified - Assessment and plan all Dx Assessment and Plan for all problems:: rounded with dr subramanian all orders per dr subramanian oob for meals
--- NOTE | 2020-06-04 19:01 | PC.NURSE ---
Pt alert x 1, speech is mumbled as it has been. RR even and unlabored. Did hold afternoon ativan and buspar r/t drowsiness. Pt has been more alert this afternoon. Turn and repositioned q 2. Incont of B&B. Briefs worn and teds in place. Lungs cta, s1,s2, bs x 4. CB in reach. Pt has ate minimally this shift and ST is planning to eval in the am- per ST. Pt did swallow am meds without difficulty. VSS. 0.45 NS @ 100 ml/hr.
[2020-06-05] VITALS: BP 146/96; PULSE 76; RESP 14; TEMP 36.7; O2SAT 91
[2020-06-05 04:00] VITALS: BP 127/68; PULSE 72; RESP 14; TEMP 37.2; O2SAT 92
[2020-06-05 05:04] VITALS: BMI 35.5
[2020-06-05 06:55] LABS: Basophils % 0.2 % (0.1-2.0); Eosinophils # 0.2 K/mm3 (0.0-0.4); Eosinophils % 1.4 % (0.1-12.0); Hematocrit 43.1 % (37.0-47.0); Hemoglobin 13.5 g/dL (12.2-16.2); Lymphocytes # 1.2 K/mm3 (0.7-4.5); Lymphocytes % 10.7 % (10-50); Mean Corpuscular HGB Conc 31.3 g/dL (31.8-35.4); Mean Corpuscular Volume 105.5 fl (81-99); Mean Platelet Volume 9.3 fl (7.4-10.4); Monocytes # 0.4 K/mm3 (0.1-1.0); Monocytes % 3.8 % (1.7-9.3); Neutrophils # 9.6 K/mm3 (1.8-7.8); Platelet Count 116 K/mm3 (142-424); Red Blood Count 4.09 M/mm3 (4.20-5.40); Red Cell Distribution Width 14.6 % (11.5-17.5); White Blood Count 11.5 K/mm3 (4.8-10.8)
[2020-06-05 07:02] LABS: Potassium 3.7 mmoL/L (3.5-5.1); Sodium 149 mmol/L (136-145)
[2020-06-05 07:05] LABS: Blood Urea Nitrogen 58 mg/dl (7-17); Creatinine Clearance Estimated 43 mL/min (50-200); Estimated Glomerular Filt Rate 29 ml/min (>60); GFR (African American) 35 ML/MIN (>60)
[2020-06-05 07:06] LABS: Anion Gap 10.7 mEq/L (5-15); Calcium 8.2 mg/dl (8.4-10.2); Carbon Dioxide 14 mmol/L (22.0-30.0); Glucose 95 mg/dl (74-100)
[2020-06-05 07:44] LABS: Procalcitonin 9.39 ng/mL (0.0-2.0)
[2020-06-05 07:48] LABS: Chloride 128 mmol/L (98-107)
[2020-06-05 08:00] VITALS: BP 167/97; PULSE 83; RESP 18; TEMP 37.1; O2SAT 96
--- NOTE | 2020-06-05 08:47 | HMH.ACPN2 ---
Internal Medicine - PN: Subj *Date: 06/05/20 *Time: 08:47 Interval history: pt awake Exam Vital signs and Labs for Last 24 Hours: Temp Pulse Resp BP Pulse Ox 98.9 F 72 14 127/68 92 L 06/05/20 04:00 06/05/20 04:00 06/05/20 04:00 06/05/20 04:00 06/05/20 04:00 Laboratory Results - last 24 hr 06/05/20 06:24: WBC 11.5 H D, RBC 4.09 L, Hgb 13.5, Hct 43.1, MCV 105.5 H, MCH 33.0 H, MCHC 31.3 L, RDW 14.6, Plt Count 116 L, MPV 9.3, Neut % (Auto) 84.0 H, Lymph % (Auto) 10.7, [place] % (Auto) 3.8, Eos % (Auto) 1.4, Baso % (Auto) 0.2, Neut # (Auto) 9.6 H, Lymph # (Auto) 1.2, [place] # (Auto) 0.4, Eos # (Auto) 0.2, Baso # (Auto) 0.0 06/05/20 06:24: Sodium 149 H, Potassium 3.7, Chloride 128 H, Carbon Dioxide 14 L, Anion Gap 10.7, BUN 58 H, Creatinine 1.80 H, Estimated Creat Clear 43, Estimated GFR 29 L, Est GFR ( Amer) 35 L D, Glucose 95, Calcium 8.2 L, Procalcitonin 9.39 H I & O for Last 24 hours: Intake & Output 06/02/20 06/03/20 06/04/20 06/05/20 11:59 11:59 11:59 11:59 Intake Total 2462 / 2462 1014 / 1014 1565 / 1565 1260 / 1260 Output Total 1025 / 1225 500 / 500 Balance 1437 / 1237 514 / 514 1565 / 1565 1260 / 1260 Weight 174 lb 3 oz 176 lb 3 oz 176 lb 5.917 oz 176 lb 5.917 oz - Constitutional no acute distress, morbidly obese - *Routine HEENT Exam Head: Present: normocephalic Eye: Present: PERRL ENT: Present: mucous membranes moist - *Routine Neck Exam Present: supple. Absent: lymphadenopathy - *Routine Respiratory Exam Present: CTA bilaterally - *Routine Cardiovascular Exam Present: RRR - *Routine Abdominal Exam Present: soft, normoactive bowel sounds. Absent: tenderness - *Routine Extremities Exam Present: edema, normal capillary refill. Absent: cyanosis, clubbing - *Routine Skin Exam Present: warm. Absent: rash - *Routine Neurological Exam Present: alert - Routine Psychiatric Exam Present: unable to assess Assessment and Plan (1) Bacteremia Status: Acute Category: Medical Code(s): R78.81 - Bacteremia (2) VICK (acute kidney injury) Status: Acute Category: Medical Code(s): N17.9 - Acute kidney failure, unspecified (3) Obesity (BMI 30-39.9) Status: Acute Category: Medical Code(s): E66.9 - Obesity, unspecified (4) Septic shock Status: Acute Category: Medical Code(s): A41.9 - Sepsis, unspecified organism; R65.21 - Severe sepsis with septic shock (5) Severe sepsis with acute organ dysfunction Status: Acute Category: Medical Code(s): A41.9 - Sepsis, unspecified organism; R65.20 - Severe sepsis without septic shock (6) UTI (urinary tract infection) Status: Acute Qualifiers: Urinary tract infection type: site unspecified Hematuria presence: without hematuria Qualified Code(s): N39.0 - Urinary tract infection, site not specified Category: Medical Code(s): N39.0 - Urinary tract infection, site not specified (7) Altered mental status Status: Acute Qualifiers: Altered mental status type: unspecified Qualified Code(s): R41.82 - Altered mental status, unspecified Category: Medical Code(s): R41.82 - Altered mental status, unspecified (8) Epilepsy Status: Chronic Category: Medical Code(s): G40.909 - Epilepsy, unspecified, not intractable, without status epilepticus (9) History of falling Status: Acute Category: Medical Code(s): Z91.81 - History of falling (10) Hyperlipemia, fat-induced Status: Chronic Category: Medical Code(s): E78.49 - Other hyperlipidemia (11) Lung mass Status: Chronic Category: Medical Code(s): R91.8 - Other nonspecific abnormal finding of lung field (12) Major depression Status: Chronic Category: Medical Code(s): F32.9 - Major depressive disorder, single episode, unspecified (13) Obesity Status: Chronic Qualifiers: Obesity type: due to excess calories Category: Medical Code(s): E66.9 - Obesity, unspecified (14) Tobacco use Stat
--- NOTE | 2020-06-05 11:45 | CT_ITS ---
PROCEDURE: CT HEAD/BRAIN WO CON CLINICAL INDICATION: Previous CVA Unresponsive COMPARISON: CT HEADWO CT head/brain wo con from 08/11/[address] HEAD/BRAIN WO CON from 09/01/[address] HEAD/BRAIN WO CON from 05/31/2020 TECHNIQUE: Axial images obtained. All CT scans at the facility use one or more dose reduction, viz: automated exposure control, ma/kV adjustment per patient size (including targeted exams where dose is matched to indication, i.e. head), or iterative reconstruction technique. 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 No midline shift or mass effect. There are periventricular ischemic gliotic changes. No evidence of acute intracranial hemorrhage. IMPRESSION: No change with no acute intracranial findings. 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
--- NOTE | 2020-06-05 11:45 | XR_ITS ---
PROCEDURE: XR CHEST PORTABLE CLINICAL HISTORY: Trouble swallowing, wont cooperate with speech Difficulty swallowing COMPARISON: CR XR CHEST AP from 05/20/[address] CHEST WO CON from 09/01/2019 CR XR CHEST AP from 10/24/2019 CR XR CHEST AP from 05/31/2020 FINDINGS: The cardiomediastinal silhouette and pulmonary vascularity are within normal limits. Scarring is present in the left upper lobe. The remaining lungs are clear. There are old right-sided rib fractures and there is an old ununited left humeral neck fracture with an old right humeral neck fracture. No acute bony abnormalities. IMPRESSION: No change with no acute finding Dictated by: Moe Ivy MD 06/05/2020 13:10 Moe Ivy MD in [facility] 06/05/2020 13:10
--- NOTE | 2020-06-05 11:55 | HMH.SLDYSPHA ---
Speech & Language Evaluation Speech/Language Dysphagia Evaluation Start: 06/05/20 11:29 Freq: ONCE Status: Active Protocol: Document 06/05/20 11:29 BRO (Rec: 06/05/20 11:55 BRO [id number]) Dysphagia Assess/Goals/Plan Assessment Date of Evaluation: 06/05/20 Evaluation Type Initial Certification Assessment/Problems Dysphagia Does Patient Qualify for Service No Qualify/Failure Comment Ms. Jamil did not cooperate during evaluation. She did take 1 sip of water through a spoon. At this time, it is recommended that a PEG tube be placed for nutritional supplement. Recommendations PHYSICIAN CERTIFICATION: The specified therapy services are required, authorized, and reviewed every 30 days. Diet Recommendations Pleasure Feedings Additional Consults Recommended Nutritional Consult Plan Pt/Guardian verbally ack understanding Yes: RN and CM notified of dx/prognosis/goals G -code Required No Dysphagia:Food Presentation Evaluation Food Type Liquid,Pudding Pudding Consistency Liquid Response Pushed out of mouth Dysphagia Evaluation Summary Ms. Jamil was given a sip of water and she had an audible swallow. It was attempted to have her try a small bolus of pudding consistency and she pushed it out of her mouth and clamped her teeth shut. At this time, it is recommended that she have a PEG tube placed for nutritional supplement. Spoke with Dietitian and she agreed with recommendations. Stroke Dysphagia Assessment PHYSICIAN CERTIFICATION: I certify the specified therapy services for Thalia Jamil are required, authorized, and reviewed every 30 days.
[2020-06-05 16:00] VITALS: BP 129/94; PULSE 114; RESP 22; TEMP 37.4; O2SAT 96
--- NOTE | 2020-06-05 16:34 | DIET.NUTRFU ---
Pt has continued to refuse PO intake t/o stay despite cueing/encouragement, speech eval today, pt unable to participate, PEG placement recommended for nutrition needs. Pt 5 days severely minimal PO intake- a few bites/sips only. IVF dc'ed this am- monitor fluid intake closely. While clinically pt is improving, mentation is not at baseline. She does have hx of guarding/refusing PO intake per LTCF. Pt has family (see SW/Discharge note for contact) but no current POA...Will follow further careplans and continue to monitor, provide MNT as indicated.
--- NOTE | 2020-06-05 19:35 | PC.NURSE ---
Pt has been pleasant and somewhat cooperative this shift. Convincing pt to open her mouth and swallow any PO intake or PO medications is difficult. Alert to person. Speech is extremely garbled and sometimes completely incomprehensible. Pt is flaccid on the LT side of her body and is incontinent of bowel/bladder. Pt requires turning/repositioning and oral care Q2H. Lungs CTA. 2+ pitting edema noted to bilateral hands. Both hands have been elevated with pillows this shift. Pt has had 1 BM today and it was loose. IVF DC'd this AM per Dr. Wagner. 22 G peripheral IV in the RT wrist is patent and SL. B/P has been elevated, other VS are stable. Pt is on room air with sats. >90%. Seizure pads in place. Call light within reach. Will continue to monitor.
[2020-06-05 20:20] LABS: ABG Base Excess -22.4 mmol/L (-2.4-2.3); ABG HCO3 11.2 mmhg (22.0-26.0); ABG Oxygen Saturation 99 % (90-100); ABG PO2 261.9 mmhg (80-100); ABG TCO2 13.2 mmhg (23-27)
--- NOTE | 2020-06-05 20:39 | XR_ITS ---
PROCEDURE: XR CHEST PORTABLE CLINICAL HISTORY: ET TUBE PLACEMENT Code blue, rapid response COMPARISON: CT CT CHEST WO CON from 09/01/2019 CR XR CHEST AP from 10/24/2019 CR XR CHEST AP from 05/31/2020 CR XR CHEST PORTABLE from 06/05/2020 FINDINGS: 2013 hours. Endotracheal tube is 2.5 cm above the rolando. Unremarkable cardiovascular structures. Scarring is present the left upper lobe. Lungs are otherwise clear. There is an old ununited left humeral neck fracture. IMPRESSION: Endotracheal tube 2.5 cm above the rolando Dictated by: Moe Ivy MD 06/06/2020 06:32 Moe Ivy MD in [facility] 06/06/2020 06:32
--- NOTE | 2020-06-05 20:57 | HMH.ACPN2 ---
Internal Medicine - PN: Subj *Date: 06/05/20 *Time: 20:57 Interval history: Rapid response team called for patient unresponsive and without palpable pulse. CPR started and patient was bagged. She was then intubated with the assistance of ER staff with a 7.0 ET tube. Placement of the tube was subsequently confirmed above the bifurcation via CXR. Interosseous access was obtained in both lower extremities to augment peripheral access. In the course of the code patient received epi x 3, atropine, bicarb,d50, and dopamine and levophed were started. Patient maintained a palpable pulse transiently, very faint. She remained unresponsive throughout the process. Pulse then became non-palpable. Pt had a brief run of vtach, and amiodarone was given. After efforts of the response team failed to yield a palpable pulse the patient was noted to be in asystole on the monitor. She was at that time increasingly mottled. ABG from femoral artery demonstrated significant acidosis with a pH of 6.8 She was pronounced at 18:49 Exam Vital signs and Labs for Last 24 Hours: Temp Pulse Resp BP Pulse Ox 99.4 F 114 H 22 129/94 H 96 06/05/20 16:00 06/05/20 16:00 06/05/20 16:00 06/05/20 16:00 06/05/20 16:00 Laboratory Results - last 24 hr 06/05/20 06:24: WBC 11.5 H D, RBC 4.09 L, Hgb 13.5, Hct 43.1, MCV 105.5 H, MCH 33.0 H, MCHC 31.3 L, RDW 14.6, Plt Count 116 L, MPV 9.3, Neut % (Auto) 84.0 H, Lymph % (Auto) 10.7, [place] % (Auto) 3.8, Eos % (Auto) 1.4, Baso % (Auto) 0.2, Neut # (Auto) 9.6 H, Lymph # (Auto) 1.2, [place] # (Auto) 0.4, Eos # (Auto) 0.2, Baso # (Auto) 0.0 06/05/20 06:24: Sodium 149 H, Potassium 3.7, Chloride 128 H, Carbon Dioxide 14 L, Anion Gap 10.7, BUN 58 H, Creatinine 1.80 H, Estimated Creat Clear 43, Estimated GFR 29 L, Est GFR ( Amer) 35 L D, Glucose 95, Calcium 8.2 L, Procalcitonin 9.39 H I & O for Last 24 hours: Intake & Output 06/02/20 06/03/20 06/04/20 06/05/20 23:59 23:59 23:59 23:59 Intake Total 1262 / 1262 1134 / 1134 2705 / 2705 110 / 110 Output Total 1125 / 1125 Balance 137 / 137 1134 / 1134 2705 / 2705 110 / 110 Weight 174 lb 3 oz 176 lb 5.917 oz 176 lb 5.917 oz Microbiology Reports for the Last 24 Hours: Microbiology 06/05/20 14:45 Nasopharyngeal Coronavirus COVID-19 PCR - Final - Constitutional obtunded - *Routine Neck Exam Present: trachea midline - *Routine Respiratory Exam Present: patient mechanically ventilated - *Routine Cardiovascular Exam Present: other Comments: as relayed in history - *Routine Abdominal Exam Present: soft, normoactive bowel sounds, other. Absent: tenderness Comments: not examined during code - *Routine Extremities Exam Present: cyanosis, extremity cold to touch, vascular access. Absent: pulses intact - *Routine Skin Exam Present: cyanosis, mottling - *Routine Neurological Exam Present: sensory deficit, motor deficit. Absent: moving all extremities, normal speech Assessment and Plan (1) Bacteremia Status: Acute Category: Medical Code(s): R78.81 - Bacteremia (2) VICK (acute kidney injury) Status: Acute Category: Medical Code(s): N17.9 - Acute kidney failure, unspecified (3) Obesity (BMI 30-39.9) Status: Acute Category: Medical Code(s): E66.9 - Obesity, unspecified (4) Septic shock Status: Acute Category: Medical Code(s): A41.9 - Sepsis, unspecified organism; R65.21 - Severe sepsis with septic shock (5) Severe sepsis with acute organ dysfunction Status: Acute Category: Medical Code(s): A41.9 - Sepsis, unspecified organism; R65.20 - Severe sepsis without septic shock (6) UTI (urinary tract infection) Status: Acute Qualifiers: Urinary tract infection type: site unspecified Hematuria presence: without hematuria Qualified Code(s): N39.0 - Urinary tract infection, site not specified Category: Medical Code(s): N39.0 - Urinary tract infection, site not specified (7) [place]
--- NOTE | 2020-06-05 21:04 | PC.NURSE ---
The patient b/p in 213 was 61/35 and i couldn't get her o2 and her heart rate to read. I then called tj to inform him of the patients condition
--- NOTE | 2020-06-05 21:16 | HMH.DCSUM ---
General - General Admission date:: 06/01/20 Discharge date: 06/05/20 HPI HPI: 60 yr old female presented to ed via ems from [facility] for ams. Pt was neg for covid. Per staff pt has continued to decline in mental status and was becoming difficult to arouse. Per nursing staff she became unarousal and bp was low. Pt was sent to ed for eval. Pt admitted for UTI, sepsis with blood cx pending Hospital Course Hospital Course: Pt was placed on appropriate antibiotic regimen. Procalcitonin levels were declining suggestive of eficacy. Pt was noted to have declining status throughout her stay. Speech evaluation was done, and pt was unable to be assessed. Preliminary plans for g-tube were discussed. On the evening of 06/05/20 rapid response team was called. After efforts to resuscitate the patient was pronounced at 18:49 Objective Vital signs: Temp Pulse Resp BP Pulse Ox 99.4 F 114 H 22 129/94 H 96 06/05/20 16:00 06/05/20 16:00 06/05/20 16:00 06/05/20 16:00 06/05/20 16:00 Results Labs on day of discharge: Labs from last 24 hours 06/05/20 06/05/20 06:24 06:24 WBC 11.5 H D RBC 4.09 L Hgb 13.5 Hct 43.1 MCV 105.5 H MCH 33.0 H MCHC 31.3 L RDW 14.6 Plt Count 116 L MPV 9.3 Neut % (Auto) 84.0 H Lymph % (Auto) 10.7 [place] % (Auto) 3.8 Eos % (Auto) 1.4 Baso % (Auto) 0.2 Neut # (Auto) 9.6 H Lymph # (Auto) 1.2 [place] # (Auto) 0.4 Eos # (Auto) 0.2 Baso # (Auto) 0.0 Sodium 149 H Potassium 3.7 Chloride 128 H Carbon Dioxide 14 L Anion Gap 10.7 BUN 58 H Creatinine 1.80 H Estimated Creat Clear 43 Estimated GFR 29 L Est GFR ( Amer) 35 L D Glucose 95 Calcium 8.2 L Procalcitonin 9.39 H DS: Diagnosis - Discharge Diagnosis (1) Bacteremia Status: Acute (2) VICK (acute kidney injury) Status: Acute (3) Obesity (BMI 30-39.9) Status: Acute (4) Septic shock Status: Acute (5) Severe sepsis with acute organ dysfunction Status: Acute (6) UTI (urinary tract infection) Status: Acute (7) Altered mental status Status: Acute (8) Epilepsy Status: Chronic (9) History of falling Status: Acute (10) Hyperlipemia, fat-induced Status: Chronic (11) Lung mass Status: Chronic (12) Major depression Status: Chronic (13) Obesity Status: Chronic (14) Tobacco use Status: Acute (15) Anxiety Status: Chronic (16) Difficulty walking Status: Chronic (17) HTN (hypertension), benign Status: Chronic (18) Hepatitis C Status: Chronic (19) Unsteadiness on feet Status: Chronic (20) Urinary incontinence Status: Chronic (21) Asystole Status: Acute Discharge Plan - Patient Discharge Instructions ACTIVITY: Other DIET: other Patient Instructions: DI for Sepsis -- Adult, DI for Altered Mental Status - Follow up Plan Disposition: Home Medications: Home Medications Medication Instructions Recorded Confirmed Type Aspirin [Aspirin 81mg chewable 81 mg PO DAILY 08/11/17 06/01/20 History tab] PARoxetine HCL [Paroxetine HCl] 40 mg PO DAILY 08/11/17 06/01/20 History atorvastatin 10 mg tablet 10 mg PO HS tab 08/17/17 06/01/20 History Acetaminophen [Tylenol 500mg 500 mg PO Q6HP PRN 05/31/20 06/01/20 History tablet] Buspirone HCl [Buspirone 15 mg 15 mg PO TID 05/31/20 06/01/20 History Tablets] Lactulose [Lactulose 10gm/15ml 20 gm PO DAILYP PRN 05/31/20 06/01/20 History Oral Soln] Loratadine [Claritin] 10 mg PO DAILYP PRN 05/31/20 06/01/20 History OLANZapine [Olanzapine] 5 mg PO DAILY 05/31/20 06/01/20 History OLANZapine [Olanzapine] 10 mg PO HS 05/31/20 06/01/20 History Sennosides [Senna] 8.6 mg PO BID 05/31/20 06/01/20 History ondansetron HCL [Zofran 4mg Tab*] 4 mg PO Q6HP PRN 05/31/20 06/01/20 History Acetaminophen with Codeine 1 each PO TID 06/01/20 06/01/20 History [Tylenol with Codeine #3 t
[2020-06-05 21:26] LABS: Oxygen 100% %; Source Left Femoral
[2020-06-05 21:27] LABS: ABG PCO2 65.5 mmhg (35.0-45.0); ABG PH 6.85 mmol/L (7.35-7.45)
--- NOTE | 2020-06-05 21:27 | PC.NURSE ---
1956- ENVIRONMENTAL SCIENTIST notified Mp Capone RN that o2 and HR could not be read on datascope or pulse ox 1958-No pulses felt on pt, pt agonal breathing 1999- Code Blue called, ACLS initiated 2001- ER MD Wagner and at bedside 2002- 1 mg of epi administered 2003- pulse check, no pulse detected, CPR continued 2004- 15 fr IO inserted in Lt tibia by Mp Capone RN 2005- pulse check, no pulse detected, 1 mg of epi administered, CPR continued 2007- pulse check, no pulse detected, Atropine administered, 7 fr ET put in by cristin Acedic measured 19 @ gum 2008- FSBS obtained=63, 1 mg of epi administered 2009- pulse check, carotid felt by MD Wagner 2012- amp of bicarb administered 2014- blood gas obtained, T Sujit respiratory 2017- Dopamine administered @ 10mcg/min 2019- pulse check, pulse felt, 20 fr IO placed in rt tibia per cristin Acedic 2020- unable to obtain 12 lead due to equipment malfunction 2022- xray performed for placement of ET 2023- amp of bicarb administered 2025- BP check attempted, nothing obtained 2026- amp of d50 administered 2027- pulse check, no pulses felt, CPR initiated 2029- pulse check, no pulse felt, bicarb in, vtach briefly spotted on monitor 2031- 300 mg amiodarone administered, pulse check, no pulse obtained, asystole on monitor, CPR resumed 2033- pulse check, no pulse, CPR resumed 2034- 1 mg of epi in 2035- pulse check, no pulse, CPR resumed 2036- Levophed initiated, 2mcg/min Dopamine stopped at this time. 2037- pulse check, no pulse 2048- TOD called by MD Baum
--- NOTE | 2020-06-05 23:10 | PC.NURSE ---
CALLED [facility] AT [phone]
--- NOTE | 2020-06-06 00:14 | PC.NURSE ---
spoke with Kiet Jamil, instructed for patient to be realeased to [facility]
--- NOTE | 2020-06-06 01:27 | PC.NURSE ---
Addendum entered by Shayan Capone RN 06/06/20 02:03: IO's in right and left tibia as well as 22g IV in right wrist removed during post mortem care. Original Note: 1956- BILLING SPEC notified this RN O2 sat was unable to read on pulse ox. When this RN assessed pt at this time she was unresponsive to sternal rub. Pulses weak and thready, pt agonal breathing. Code called at 1999, [id number] applied and ACLS initiated. (See Code note) TOD called at 2048 Dain notified and ruled out due to Hep C hx per Giselle Marrero. Post mortem care provided by staff. Next of kin notified and requested [facility]. [facility] departed with pt at 9 per [facility] request.
[2020-08-03 08:25] LABS: POC Glucose,Bedside 63 (70-110)
== END 2020-06-06 00:29 | disposition expired | DRG 871 ==
LOC: ER 20:02 → 2ND 22:47
PROVIDERS: Nurse Practitioner Family; Admitting Provider Emergency Medicine; Emergency Provider Emergency Medicine; PCP Emergency Medicine; Visit Provider Emergency Medicine
DX: A41.51 Sepsis due to Escherichia coli [E. coli] (principal); R65.21 Severe sepsis with septic shock; I69.359 Hemiplegia and hemiparesis following cerebral infarction affecting unspecified side; N39.0 Urinary tract infection, site not specified; Z72.0 Tobacco use; Z91.81 History of falling; R91.8 Other nonspecific abnormal finding of lung field; R32 Unspecified urinary incontinence; I46.9 Cardiac arrest, cause unspecified; G40.909 Epilepsy, unspecified, not intractable, without status epilepticus; E78.5 Hyperlipidemia, unspecified; B18.2 Chronic viral hepatitis C; Z79.899 Other long term (current) drug therapy
CPT/HCPCS: 36415; 70450; 71045; 74176; 76705; 80048; 80053; 80076; 81001; 82150; 82803; 82962; 83605; 83690; 84145; 85007; 85025; 86140; 86328; 87040; 87077; 87086; 87088; 87186; 92610; 93005; 96365; 96366; 96367; 96375; 99285; J1335; J2405; U0003